=== PATIENT | male | born 1925 | race Caucasian/White ===

== ENCOUNTER 2016-10-20 14:38 | Inpatient (IN) ==
--- NOTE | 2016-10-20 15:55 | Emergency Department Note ---
START Narrative - START START: I examined this patient and my medical decision-making was reviewed with the Resident Physician. I agree with the documented findings, disposition and treatment plan as described except to the extent set forth below. 89-year-old male who presented to the ER for weakness. Patient attempted to go to [facility] but was too weak and was brought to the ER. Patient states his legs were not working very well. At this time, patient has no focal deficits other than he has a slight upper extremity tremor. He is able to lift both legs off the bed. He has no facial droop. He is speaking and answering questions correctly. No focal deficits. We will workup for possible TIA versus infection.
[2016-10-20 16:36] LABS: Basophils % 0.2 %; Eosinophils # 0.1 K/mcL (0.0-0.6); Eosinophils % 0.7 %; Hematocrit 35.1 % (37.5-50.1); Hemoglobin 11.1 g/dL (12.9-16.9); Immature Granulocytes % 0.5 % (0-4); Lymphocytes # 0.6 K/mcL (0.6-4.6); Lymphocytes % 6.7 %; Mean Corpuscular HGB Conc 31.6 g/dL (31.6-35.5); Mean Corpuscular Hemoglobin 28.3 pg (28.0-33.3); Mean Corpuscular Volume 89.5 fL (83.0-100.0); Mean Platelet Volume 9.4 fL (9.4-12.4); Monocytes # 0.7 K/mcL (0.0-1.3); Monocytes % 8.1 %; Neutrophils # 7.4 K/mcL (1.6-8.9); Platelet Count 162 K/mcL (140-400); Red Blood Count 3.92 M/mcL (4.19-5.50); Red Cell Distribution Width 14.9 % (11.5-14.5); Segmented Neutrophils % 83.8 %
[2016-10-20 16:50] LABS: BUN/Creatinine Ratio 16 (6-26); Blood Urea Nitrogen 15 mg/dL (8-26); Calcium 8.8 mg/dL (8.6-10.8); Carbon Dioxide 25 mEq/L (19-29); Chloride 105 mEq/L (98-109); Glucose 80 mg/dL (70-99); Osmolality,Calculated 288 (280-300); Potassium 4.3 mEq/L (3.5-4.5); Sodium 139 mEq/L (136-145); eGFR For African Americans > 60 (> 60); eGFR For Non-African Americans > 60 (> 60)
[2016-10-20 16:50] LABS: Bilirubin,Urine Negative (Negative); Blood,Urine Trace (Negative); Clarity,Urine Cloudy (Clear); Color,Urine Yellow (Yellow); Glucose,Urine (UA) Normal (Normal); Ketones,Urine Negative (Negative); Leukocyte Esterase,Urine Moderate (Negative); Nitrite,Urine Positive (Negative); Protein,Urine 30 mg/dL (Neg-Trace); Specific Gravity,Urine 1.023 (1.010-1.025); Urobilinogen,Urine Normal (Normal)
[2016-10-20 16:52] LABS: Bacteria,Urine Many per hpf (None-Few); Hyaline Casts,Urine None Seen per lpf (None-Few); RBC,Urine 0-3 per hpf (0-3); Squamous Epithelial Cell,Urine Few per lpf (None-Few); WBC,Urine 30-50 per hpf (0-3)
[2016-10-20] MEDS ORDERED: Acetaminophen 650 MG RECTAL SUPP RC ONE (16:52)
--- NOTE | 2016-10-20 17:43 | Emergency Department Note ---
Disposition Clinical Impression: Delirium due to another medical condition, acute, hypoactive, UTI (urinary tract infection) Disposition: Admitted As Inpatient Weakness HPI - General Chief complaint: ED Weakness Stated complaint: My leg not working, shaking Time Seen by Provider: 10/20/16 15:12 Source: patient Limitations: no limitations Vital Signs Reviewed: Yes (fever ) - History of Present Illness HPI Narrative: Patient is a 89-year-old male with a past medical history of CAD and is anticoagulated and history of frequent falls presented to the ED with bilateral leg weakness. Patient was at a restaurant and fell on the ground and he was unable to get. Patient was brought in via his son. claims that he ate is typically talks a lot is not responding as fast. He is also having attention issues and decreased ability to focus. Patient always has dizziness. But denies having previous fever, dysuria, hematuria. Pain Scale: 0 - Related Data Home Medications Medication Instructions Recorded Confirmed Clopidogrel [Plavix] 75 mg PO DAILY 06/10/15 10/20/16 Omeprazole [PriLOSEC] 40 mg PO DAILY 10/20/16 10/20/16 Warfarin [Coumadin] 5 mg PO DAILY 10/20/16 10/20/16 Previous Rx's Medication Instructions Recorded Simvastatin [Zocor] 20 mg PO HS #30 tablet 12/25/15 Allergies Allergy/AdvReac Type Severity Reaction Status Date / Time No Known Allergies Allergy Verified 07/27/15 20:48 All systems ED: reviewed and negative except as stated. Review of Systems: As Per HPI Constitutional: Reports: weakness. Denies: fever, chills Cardiovascular: Denies: chest pain Respiratory: Denies: cough, dyspnea Gastrointestinal: Denies: abdominal pain Genitourinary: Denies: dysuria, hematuria Past Medical History - Past Medical History Medical history: Reports: coronary artery disease, hypertension, myocardial infarction, other Surgical history: Reports: other Psychiatric history: Reports: no psych history - Social History Smoking Status: Never smoker Smokeless Tobacco Status: No Alcohol use: Reports: none Drug use: Reports: none Physical Exam Constitutional: Inattentive, unable to focus on questions asked, well nourished , Head: Normocephalic, normal contour and symmetric, no masses, lesions or scars EENT: EOMI, PERRL, mouth mucous membranes mild dryness but no cracking of lips Heart: Normal, regular rate and rhythm, +murmurs Lungs: bilateral basilar crackles, no wheezes, rales, or rhonchi Abdomen: Soft, nondistended, nontender, and no masses palpable, bowel sounds present and normal, no guarding or rigidity. Extremities: No clubbing, cyanosis, or edema, Skin: Skin warm and dry, no jaundice Neurologic: Cranial nerves II through XII grossly intact, no focal deficits, strength within normal limits in all extremities, will follow basic commands if redirected multiple times which is abnormal per family, dysphasia, Psych: Cooperative with exam, poor eye contact, cognitive function intact, insight poor, speech clear but dysphasia, answers questions appropriately when response finally occurs - General Limitations: no limitations General appearance: alert Course Course Narrative: Patient is a 89-year-old male full code with a past medical history of CAD and is anticoagulated and history of frequent falls presented to the ED with bilateral leg weakness and have a UTI and acute delirium. Patient is found to have a fever 100.8F. CBC, BMP, troponins, and lactic acid, blood cultures, urine analysis, of the head, and chest x-ray were all obtained. Lactic acid was elevated. CBC did not show white count but UA showed UTI. CT did not show bleed. Chest x-ray showed no acute process. Patient was given [address] Ibarra, the hospitalist was contacted and patient was admitted for acute delirium and UTI. Vital Signs Temperature 98.6 F 10/20/16 14:40 Pulse Rate 89 10/20/16 14:40 Respiratory Rate 20 10/20/16 14:40 Blood Pressure 167/66 10/20/16 14:40 O2 Sat by Pulse Oximetry 100 10/20/16 14:40 Temperature 99.4 F 10/20/16 18:43 Pulse Rate 80 10/20/16 18:43 Respiratory Rate 22 10/20/16 18:43 Blood Pressure 142/89 10/20/16 18:43 O2 Sat by Pulse Oximetry 96 10/20/16 18:43 Oxygen Delivery Oxygen Delivery Room Air Weakness - Lab Data Lab results reviewed: Yes I reviewed the patient's lab results. Lab results narrative: All Lab Results (24 Hours) 10/20/16 10/20/16 10/20/16 Range/Units 16:29 16:29 16:29 WBC 8.8 (4.3-11.1) K/mcL RBC 3.92 L (4.19-5.50) M/mcL Hgb 11.1 L (12.9-16.9) g/dL Hct 35.1 L (37.5-50.1) % MCV 89.5 (83.0-100.0) fL MCH 28.3 (28.0-33.3) pg MCHC 31.6 (31.6-35.5) g/dL RDW 14.9 H (11.5-14.5) % Plt Count 162 (140-400) K/mcL MPV 9.4 (9.4-12.4) fL Immature Gran % 0.5 (0-4) % Seg Neutrophils % 83.8 % Lymphocytes % 6.7 % Monocytes % 8.1 % Eosinophils % 0.7 % Basophils % 0.2 % Neutrophils # 7.4 (1.6-8.9) K/mcL Lymphocytes # 0.6 (0.6-4.6) K/mcL Monocytes # 0.7 (0.0-1.3) K/mcL Eosinophils # 0.1 (0.0-0.6) K/mcL Basophils # 0.0 (0.0-0.2) K/mcL Sodium 139 (136-145) mEq/L Potassium 4.3 (3.5-4.5) mEq/L Chloride 105 (98-109) mEq/L Carbon Dioxide 25 (19-29) mEq/L BUN 15 (8-26) mg/dL Creatinine 0.95 (0.72-1.25) mg/dL Est GFR ( Amer) > 60 (> 60) Est GFR (Non-Af Amer) > 60 (> 60) BUN/Creatinine Ratio 16 (6-26) Glucose 80 (70-99) mg/dL Calculated Osmolality 288 (280-300) Lactic Acid 1.3 (0.5-2.2) mmol/L Calcium 8.8 (8.6-10.8) mg/dL Troponin I (0-0.03) ng/mL Urine Color (Yellow) Urine Clarity (Clear) Urine pH (5.0-8.0) pH Units Ur Specific [place] (1.010-1.025) Urine Protein (Neg-Trace) mg/dL Urine Glucose (UA) (Normal) mg/dL Urine Ketones (Negative) mg/dL Urine Blood (Negative) Urine Nitrite (Negative) Urine Bilirubin (Negative) Urine Urobilinogen (Normal) mg/dL Ur Leukocyte Esterase (Negative) Urine Microscopic RBC (0-3) per hpf Urine Microscopic WBC (0-3) per hpf Ur Squamous Epith Cells (None-Few) per lpf Urine Bacteria (None-Few) per hpf Hyaline Casts (None-Few) per lpf Ur Culture Indicated? (NO) 10/20/16 10/20/16 Range/Units 16:29 16:43 WBC (4.3-11.1) K/mcL RBC (4.19-5.50) M/mcL Hgb (12.9-16.9) g/dL Hct (37.5-50.1) % MCV (83.0-100.0) fL MCH (28.0-33.3) pg MCHC (31.6-35.5) g/dL RDW (11.5-14.5) % Plt Count (140-400) K/mcL MPV (9.4-12.4) fL Immature Gran % (0-4) % Seg Neutrophils % % Lymphocytes % % Monocytes % % Eosinophils % % Basophils % % Neutrophils # (1.6-8.9) K/mcL Lymphocytes # (0.6-4.6) K/mcL Monocytes # (0.0-1.3) K/mcL Eosinophils # (0.0-0.6) K/mcL Basophils # (0.0-0.2) K/mcL Sodium (136-145) mEq/L Potassium (3.5-4.5) mEq/L Chloride (98-109) mEq/L Carbon Dioxide (19-29) mEq/L BUN (8-26) mg/dL Creatinine (0.72-1.25) mg/dL Est GFR ( Amer) (> 60) Est GFR (Non-Af Amer) (> 60) BUN/Creatinine Ratio (6-26) Glucose (70-99) mg/dL Calculated Osmolality (280-300) Lactic Acid (0.5-2.2) mmol/L Calcium (8.6-10.8) mg/dL Troponin I 0.00 (0-0.03) ng/mL Urine Color Yellow (Yellow) Urine Clarity Cloudy A (Clear) Urine pH 6.0 (5.0-8.0) pH Units Ur Specific [place] 1.023 (1.010-1.025) Urine Protein 30 H (Neg-Trace) mg/dL Urine Glucose (UA) Normal (Normal) mg/dL Urine Ketones Negative (Negative) mg/dL Urine Blood Trace H (Negative) Urine Nitrite Positive A (Negative) Urine Bilirubin Negative (Negative) Urine Urobilinogen Normal (Normal) mg/dL Ur Leukocyte Esterase Moderate H (Negative) Urine Microscopic RBC 0-3 (0-3) per hpf Urine Microscopic WBC 30-50 H (0-3) per hpf Ur Squamous Epith Cells Few (None-Few) per lpf Urine Bacteria Many H (None-Few) per hpf Hyaline Casts None Seen (None-Few) per lpf Ur Culture Indicated? YES A (NO) Chest X-Ray 10/20/16 15:56 IMPRESSION: No acute abnormality. Chronic pulmonary vascular redistribution. D/ / Milo Vaughn MD / Milo Vaughn MD Interpreting Provider: Milo Vaughn MD Head CT 10/20/16 15:56 IMPRESSION: No evidence of intracranial hemorrhage or mass effect. There is a questionable subtle the area of low-attenuation within the inferior juliana. This is poorly evaluated due to streak artifact at this level and may be artifactual. If there is concern for acute pontine injury, MRI may be helpful for further evaluation. Atrophy and chronic white matter changes, similar in appearance. D/ / Vicky Benítez MD / Vicky Benítez MD Interpreting Provider: Vicky Benítez MD Result diagrams: 10/20/16 16:29 10/20/16 16:29 - Radiology Data Chest X-Ray 10/20/16 15:56 IMPRESSION: No acute abnormality. Chronic pulmonary vascular redistribution. D/ / Milo Vaughn MD / Milo Vaughn MD Interpreting Provider: Milo Vaughn MD Head CT 10/20/16 15:56 IMPRESSION: No evidence of intracranial hemorrhage or mass effect. There is a questionable subtle the area of low-attenuation within the inferior juliana. This is poorly evaluated due to streak artifact at this level and may be artifactual. If there is concern for acute pontine injury, MRI may be helpful for further evaluation. Atrophy and chronic white matter changes, similar in appearance. D/ / Vicky Benítez MD / Vicky Benítez MD Interpreting Provider: Vicky Benítez MD - EKG Data EKG attestation: Yes I reviewed and interpreted this EKG. EKG shows normal: sinus rhythm Rhythm: NSR Surveyor/QRS: normal Interpretation: normal EKG Critical Care Time Critical Care Time: Yes Total Critical Care Time: 35 Attestation: Critical care time spent and medical management of altered mental status with urinary tract infection and acute febrile illness.
[2016-10-20] MEDS ORDERED: D5% in Water 100 ML ONE (17:58)
[2016-10-20] MEDS ORDERED: Ibuprofen 400 MG TABLET PO PRN (20:36)
[2016-10-20] MEDS ORDERED: Acetaminophen 325 MG TABLET PO PRN (20:36)
[2016-10-20] MEDS ORDERED: Ondansetron 4 MG/2 ML VIAL IVP PRN (20:36)
[2016-10-20] MEDS ORDERED: Naloxone 0.4 MG/ML INJ IVP PRN (20:36)
--- NOTE | 2016-10-20 20:56 | Internal Med History&Physical ---
<Kyler Larson - Last Filed: 10/20/16 21:53> Date of Encounter: 10/20/16 Time of Encounter: 20:00 Assessment and Plan (1) Complicated UTI (urinary tract infection) Current visit: Yes Status: Acute Patient presents with acute complicated UTI with symptoms of acute metabolic encephalopathy and transient AMS. IV ceftriaxone 1,000 mg administered in the ED and we will continue tonight with 1,000 mg follow-up IV dosing. Will begin IV 2,000 mg dosing of ceftriaxone tomorrow for continued infection coverage. Blood cultures x2 ordered as well as urine culture. Fever control to be accomplished by alternating PO Motrin 400 mg Q6 and PO Acetaminophen 650 mg Q6. Patient to receive IV fluids at 100 mL/HR. Will monitor patient for fever and cardiac/respiratory changes. Falls/safety precautions ordered due to patient's current instability with ambulation. (2) Acute metabolic encephalopathy Current visit: Yes Status: Acute Patient presents with acute metabolic encephalopathy related to his current diagnosis of complicated UTI. IV ceftriaxone administered in the ED and we will continue 1,000 mg of IV ceftriaxone tonight and begin 2,000 mg treatment tomorrow for infection coverage. CT of the brain without contrast today shows no evidence of intracranial hemorrhage or mass effect. However, there is a questionable subtle area of low attenuation within the inferior juliana. This is poorly evaluated due to streak artifact at this level may be artifactual. If there is concern for acute pontine injury, MRI may be helpful for further evaluation. Atrophy and chronic white matter changes are similar in appearance. MRI of the brain without contrast ordered for tomorrow (10/21/16) based on patient's mentation following second dosing of IV antibiotics tonight. If mentation improves, will reconsider MRI tomorrow. Falls/safety precautions ordered. (3) Dizziness Current visit: Yes Status: Acute Patient presents with acute dizziness and AMS related to current complicated UTI and acute metabolic encephalopathy. Patient placed as falls precautions/up with assist/bed rest with bathroom privileges with assist only due to instability/dizziness. (4) Frequent falls Current visit: Yes Status: Chronic Patient presents with history of frequent falls and near syncopal episodes. Orthostatic BPs and vital signs ordered. Blood glucose monitoring ordered every 6 to assess for hypoglycemia/hyperglycemia. Patient to be placed as falls precautions/up with assist/bedrest with bathroom privileges with assist only due to history of falls and near syncopal episodes. (5) CAD (coronary artery disease) Current visit: Yes Status: Chronic Patient presents with history of chronic coronary artery disease and is currently on anticoagulation therapy with Coumadin. Will continue patient's Coumadin with pharmacy dosing. Patient placed on continuous cardiac telemetry. Patient's EKG today at 14:55 was suggestive of ischemia with sinus rhythm and anteroseptal myocardial infarction, probably recent. Will repeat EKG. Continue patient's Plavix. Qualifiers: Coronary Disease-Associated Artery/Lesion type: [place] artery [place] vs. transplanted heart: [place] heart Associated angina: without angina Qualified Code(s): I25.10 - Atherosclerotic heart disease of [place] coronary artery without angina pectoris (6) Hypertension Current visit: Yes Status: Chronic Patient presents with history o chronic HTN. Patient does not currently take anti-hypertensive medication. Will monitor patient and vital signs and consider adding Lopressor if patient becomes hypertensive. Qualifiers: Hypertension type: essential hypertension Qualified Code(s): I10 - Essential (primary) hypertension (7) HLD (hyperlipidemia) Current visit: Yes Status: Chronic Patient presents to clinic hyperlipidemia. Lipid panel ordered in a.m. labs. Will continue patient's Zocor. Qualifiers: Hyperlipidemia type: pure hypercholesterolemia Qualified Code(s): E78.00 - Pure hypercholesterolemia, unspecified; E78.0 - Pure hypercholesterolemia (8) Chronic anemia Current visit: Yes Status: Chronic Patient presents with history of chronic anemia and had Hgb of 11.1 and Hct of 35.1 on admission today. These numbers are not far removed from patient's recent baseline. H/H ordered with a.m. labs for monitoring. Will continue to monitor patient for signs of unusual bleeding and order type and screen if appropriate/necessary. (9) DVT prophylaxis Current visit: Yes Status: Acute Patient to be placed on DVT prophylaxis due to current admission protocol and bed rest status. Will continue patient's Warfarin with pharmacy to dose. INR/ APTT levels ordered with a.m. labs. Internal Medicine - H&P: HPI Chief complaint: Weakness/Fall/Pre-syncope Admitted From: Emergency Dept Plans for Post Hospital Care: Home History of present illness: Mr. Linares is a 89 year old male who presents from the ED with chief complaint of dizziness and altered mental status today. Patient reports having bilateral leg weakness today while at a restaurant and falling. He denies hitting his head or blacking out. Patient states he has a history of falls and instability on his feet but that he never passes out. He denies nausea, vomiting, headache, vision changes, abdominal pain, cough, shortness of breath, or syncope. He does report fever and chills. Patient's medical history includes coronary artery disease, hypertension, hyperlipidemia, and previous myocardial infarction from many years ago (with placement of two stents). On admission to the ED, patient' s urine was indicative for urine culture and blood cultures x 2 were ordered. Based on mentation changes, patient was thought to have a complicated UTI and was started on IV ceftriaxone 1,000 mg in the ED. We will continue 1,000 mg of IV ceftriaxone tonight and begin 2,000 mg dosing tomorrow for infection coverage. Patient to be placed on continuous telemetry based on current symptoms with troponins trended x2. Blood glucose checks Q6 to rule out hypoglycemia/hyperglycemia episodes. Orthostatic BPs and vital signs ordered. CT of the head today without contrast shows no evidence of intracranial hemorrhage or mass effect. However there is questionable subtle area of low attenuation within the inferior juliana. This is poorly evaluated due to streak artifact at this level may be artifactual. If there is concern for acute pontine injury, MRI may be helpful for further evaluation. Atrophy and chronic white matter changes are similar in appearance. MRI of the brain without contrast ordered for tomorrow (10/21/16) based on patient's mentation following second dosing of IV antibiotics tonight. If mentation improves, will reconsider MRI tomorrow. Falls/safety precautions ordered. Will continue patient's Plavix and Coumadin with pharmacy dosing. Patient is at moderate risk for further morbidity based on current symptoms and infection and will be placed as inpatient status with close monitoring. Time spent with patient > 40 minutes. Past Med Surg Social Fam HX - Past Medical History Source: patient Medical history: coronary artery disease, hypertension, myocardial infarction, other Psychiatric history: no psych history - Past Surgical History Surgical History: appendectomy, orthopedic, other (Bilateral knee replacement x2 ), other (Tonsillectomy) - Social History Smoking Status: Former smoker Packs per day: 1.5 PPD - Reports he quit 4 years ago Smokeless Tobacco Status: No Alcohol use: none, occasionally Drug use: none Occupational status: previously employed Current living situation: Home, With Family Activity Level: Independent ambulation Recent Out of Country Travel Within the Last 8 Weeks: No Exposure or Possible Exposure to Illness During Travel: No - Family History Mother Adopted: No Race: Family Member Ethnicity: Non- Living Status: Age at : 80 Cause of : Old age Hx Family Medical Disorders: No Father Race: Family Member Ethnicity: Non- Living Status: Age at : 89 Cause of : Old age Hx Family Medical Disorders: No Brother Race: Family Member Ethnicity: Non- Living Status: Age at : 65 Cause of : Cancer Hx Family Cancer: Yes Internal Medicine - H&P: Meds Clopidogrel [Plavix] 75 mg PO DAILY 06/10/15 [History] Simvastatin [Zocor] 20 mg PO HS #30 tablet 12/25/15 [Rx] Omeprazole [PriLOSEC] 40 mg PO DAILY 10/20/16 [History] Warfarin [Coumadin] 5 mg PO DAILY 10/20/16 [History] Allergies No Known Allergies Allergy (Verified 07/27/15 20:48) All Systems PM: A 10-system review of systems was performed and is negative for pertinent findings except as documented above in the HPI. - Constitutional Constitutional: as per HPI, chills, fever(s), falls, weakness, no night sweats - EENT Eyes: no change in vision, no discharge, no pain, no photophobia Ears: no ear discharge, no ear pain, no tinnitus Nose, mouth and throat: no dysphagia, no nasal discharge, no neck pain, no sore throat - Breasts Breasts: as per HPI - Cardiovascular Cardiovascular ROS IM: as per HPI, edema (Bilateral non-pitting pedal edema), lightheadedness, no chest pain, no diaphoresis, no dyspnea, no palpitations, no syncope - Respiratory Respiratory: no cough, no dyspnea, no wheezing, no excessive phlegm production - Gastrointestinal Gastrointestinal: no abdominal pain, no diarrhea, no hematemesis, no hematochezia, no melena, no nausea, no vomiting - Genitourinary Genitourinary ROS male: as per HPI, urinary incontinence - Musculoskeletal Musculoskeletal ROS IM: no numbness, no tingling - Integumentary Integumentary IM: no rash, no unusual bruising - Neurological Neurological ROS: as per HPI, confusion (Mild AMS within past 24 ), frequent falls, lack of coordination, no convulsions, no focal weakness, no numbness, no tingling, no tremor(s) - Psychiatric Psychiatric: as per HPI - Endocrine Endocrine IM: as per HPI - Hematologic/Lymphatic Hematologic/Lymphatic: no easy bruising - Allergic/Immunologic Allergic/Immunologic: as per HPI - Constitutional Vitals: Temp Pulse Resp BP Pulse Ox 99.4 F 80 18 142/89 96 10/20/16 19:32 10/20/16 18:43 10/20/16 19:32 10/20/16 19:32 10/20/16 18:43 General appearance: Present: cooperative, A&O X 3, pleasant, no acute distress, obese, answers questions appropriately - Head Head exam: Present: atraumatic, normocephalic - Eye Eye exam: Present: PERRL, conjuntiva pink, sclera anicteric Pupils: Present: PERRL - ENT ENT exam: Present: mucous membranes dry, normal exam, normal external ear exam - Neck Neck exam general surgery: Present: supple, trachea midline. Absent: lymphadenopathy - Respiratory Respiratory exam: Present: CTAB. Absent: accessory muscle use, rales, rhonchi, wheezes - Cardiovascular Cardiovascular exam: Present: RRR, +S1, +S2. Absent: diastolic murmur, gallop, rubs, systolic murmur - GI/Abdominal GI/Abdominal exam: Present: normal bowel sounds, soft, no peritoneal signs. Absent: distended, tenderness - Rectal Rectal exam: Present: deferred - Additional comments: exam deferred. - Extremities Exam Extremities exam: Present: pedal edema (Non-pitting bilaterally), warm, radial pulses palpable and symmetrical. Absent: calf tenderness, cyanotic - Back Exam Back exam: Present: normal inspection - Neurological Exam Neurological exam: Present: CN II-XII intact, oriented X3, no focal deficits. Absent: pronater drift, facial droop, speech deficit - Psychiatric Psychiatric exam: Present: normal affect, normal mood - Skin Skin exam: Present: dry, intact Internal Med - H&P Results - Labs CBC & Chem 7: 10/20/16 16:29 10/20/16 16:29 - EKG Data EKG shows normal: sinus rhythm - EKG Data Prior EKG available for review: yes When compared to previous EKG: there is no significant change Interpretation IM: suggestive of ischemia EKG comments: 10/20/16 21:04 EKG dated 12/23/15 shows sinus rhythm with occasional ventricular premature complexes, anteroseptal myocardial infarction of indeterminate age. EKG dated 10/20/16 shows sinus rhythm with anteroseptal myocardial infarction, probably recent. - Diagnostic Studies Chest x-ray Additional comments: Impressions Chest X-Ray 10/20/16 15:56 IMPRESSION: No acute abnormality. Chronic pulmonary vascular redistribution. D/ / Milo Vaughn MD / Milo Vaughn MD Interpreting Provider: Milo Vaughn MD CT scan - chest Additional comments: Impressions Head CT 10/20/16 15:56 IMPRESSION: No evidence of intracranial hemorrhage or mass effect. There is a questionable subtle the area of low-attenuation within the inferior juliana. This is poorly evaluated due to streak artifact at this level and may be artifactual. If there is concern for acute pontine injury, MRI may be helpful for further evaluation. Atrophy and chronic white matter changes, similar in appearance. D/ / Vicky Benítez MD / Vicky Benítez MD Interpreting Provider: Vicky Benítez MD <Dillan Whipple - Last Filed: 10/20/16 22:54> Date of Encounter: 10/20/16 Internal Medicine - H&P: HPI History of present illness: Mr. Linares is a 89 year old male All Systems PM: A 10-system review of systems was performed and is negative for pertinent findings except as documented above in the HPI. - Constitutional Vitals: Temp Pulse Resp BP Pulse Ox 98.2 F 69 16 134/67 94 10/20/16 20:10 10/20/16 20:10 10/20/16 20:10 10/20/16 20:10 10/20/16 20:10 Internal Med - H&P Results - Labs CBC & Chem 7: 10/20/16 16:29 10/20/16 16:29 - Attending Attestation I have personally performed a face to face evaluation on this patient. I have reviewed and agree with the care plan. History and Exam by me shows: 89-year-old gentleman with a cardiac and CVA history on anticoagulation Coumadin and Plavix who presents with acute altered mental status and b/l LE weakness. He is fully functional at baseline and he drove himself to [facility] for coffee. During this time at [facility], he was noted develop mild confusion along with b/l LE weakness. He was admitted for UTI and encephalopathy ROS 14 point review of systems reviewed as best as possible given presentation. Pertinent positive or negative as per HPI or otherwise reviewed as negative General - AAO x 3 but sleepy. He feels warm Psych - Appropriate affect/speech. No agitation Eyes - CHRISTELLE. Eye lids intact. No scleral icterus ENT - Oral mucosa pink, dentition intact. External ear clear/dry/intact. No thyromegaly Lymphatics - No cervical/inguinal lympadenopathy Neuro - No gross peripheral or central neuro deficits with intact CN 2-12 exam Heart - Sinus. RRR. S1 and S2 present. No added HS/murmurs appreciated. No elevated JVD appreciated. No calf swellings/erythema Lung - Adequate air entry b/l, No crackes/wheezes appreciated GI - Soft, non-tender. No hepatosplenomegaly/ascities. BS+ - No CVA/suprapubic tenderness or palpable bladder distension Skin - Intact. No rash/petechiae/ecchymosis. Warm extremities UTI - urine pyuria - rocephin IV - IVF - urine cx pending Acute encephalopathy - could be 2/2 to infectious UTI - CT with: There is a questionable subtle the area of low-attenuation within the inferior juliana. This is poorly evaluated due to streak artifact at this level and may be artifactual. If there is concern for acute pontine injury, MRI may be helpful for further evaluation. - however, my exam at bedside is none-focal. Would treat UTI and if symptoms improve, would d/c MRI Anticoagulation - reported to be for cardiac and CVA hx - trend INR, dose coumadin with care while on antibiotics
[2016-10-20] MEDS ORDERED: *HR* Warfarin 5 MG TABLET PO ONE (21:45)
[2016-10-20] MEDS: Pantoprazole 40 MG VIAL IVP SCH (22:11)
[2016-10-20] MEDS: 0.9 % Sodium Chloride 1,000 ML IVC SCH (22:12)
[2016-10-21 03:36] LABS: Basophils % 0.1 %; Eosinophils # 0.1 K/mcL (0.0-0.6); Eosinophils % 0.9 %; Hematocrit 34.3 % (37.5-50.1); Immature Granulocytes % 0.6 % (0-4); Lymphocytes # 1.1 K/mcL (0.6-4.6); Lymphocytes % 12.2 %; Mean Corpuscular HGB Conc 32.1 g/dL (31.6-35.5); Mean Corpuscular Hemoglobin 28.7 pg (28.0-33.3); Mean Corpuscular Volume 89.6 fL (83.0-100.0); Mean Platelet Volume 9.5 fL (9.4-12.4); Monocytes % 11.9 %; Neutrophils # 6.5 K/mcL (1.6-8.9); Platelet Count 153 K/mcL (140-400); Red Blood Count 3.83 M/mcL (4.19-5.50); Red Cell Distribution Width 15.1 % (11.5-14.5); Segmented Neutrophils % 74.3 %
[2016-10-21 03:42] LABS: INR 1.2; Prothrombin Time 12.8 Seconds (9.4-12.1)
[2016-10-21 03:45] LABS: Activated Partial Thrombo Time 28.1 Seconds (26.0-36.0)
[2016-10-21 03:48] LABS: Hemoglobin A1C 5.4 %
[2016-10-21 03:52] LABS: BUN/Creatinine Ratio 14 (6-26); Blood Urea Nitrogen 13 mg/dL (8-26); Calcium 8.8 mg/dL (8.6-10.8); Carbon Dioxide 27 mEq/L (19-29); Chloride 106 mEq/L (98-109); Cholesterol 141 mg/dL (< 200); Glucose 89 mg/dL (70-99); HDL Cholesterol 28 mg/dL (40-59); LDL Cholesterol,Calculated 97 mg/dL (0-99); Magnesium 1.9 mg/dL (1.6-2.6); Osmolality,Calculated 286 (280-300); Sodium 138 mEq/L (136-145); Triglycerides 82 mg/dL (< 150); eGFR For African Americans > 60 (> 60); eGFR For Non-African Americans > 60 (> 60)
[2016-10-21] MEDS: Pantoprazole 40 MG VIAL IVP SCH (06:34)
[2016-10-21] MEDS: 0.9 % Sodium Chloride 1,000 ML IVC SCH ×2 (06:39→21:31)
--- NOTE | 2016-10-21 10:55 | Internal Med Progress Note ---
<Ryan Morse - Last Filed: 10/21/16 11:47> Date of Encounter: 10/21/16 Time of Encounter: 10:49 - Assessment and plan (1) UTI (urinary tract infection) Current Visit: Yes Status: Acute Assessment and plan: Likely cause of patient's AMS. Patient reports some urinary frequency. Reports marked improvement since yesterday. UA showed nitrites, leuke esterace, WBC and bacteria. Ucx showed Gram negative rods Pt received 1g Ceftriaxone in ED and got second gram after admission. continue 2g daily Bcx pending cont IV Fluids Qualifiers: Urinary tract infection type: acute cystitis Hematuria presence: without hematuria Qualified Code(s): N30.00 - Acute cystitis without hematuria (2) Acute metabolic encephalopathy Current Visit: Yes Status: Acute Assessment and plan: Much improved today. Back to baseline today. likely caused by his UTI/dehydration continue abx continue IV fluids CT head showed "uestionable subtle the area of low-attenuation within the inferior juliana. " MRI Brain showed: "Chronic small vessel ischemic changes. No acute brain parenchymal abnormality." (3) Frequent falls Current Visit: Yes Status: Chronic Assessment and plan: History of frequent falls. Orthostatic BPs checked and were negative continue to monitor BG, they have been normal continue fall precautions PT/OT consult (4) Dizziness Current Visit: Yes Status: Acute Assessment and plan: improved. continue fall precautions (5) Hypertension Current Visit: Yes Status: Chronic Assessment and plan: Hx of HTN, but not currently on medications. consider adding lopressor pt's BP has been in the 150s/60s Qualifiers: Hypertension type: essential hypertension Qualified Code(s): I10 - Essential (primary) hypertension (6) CAD (coronary artery disease) Current Visit: Yes Status: Chronic Assessment and plan: Patient denies Chest Pain continue statin, Coumadin and plavix Qualifiers: Coronary Disease-Associated Artery/Lesion type: [place] artery [place] vs. transplanted heart: [place] heart Associated angina: without angina Qualified Code(s): I25.10 - Atherosclerotic heart disease of [place] coronary artery without angina pectoris (7) HLD (hyperlipidemia) Current Visit: Yes Status: Chronic Assessment and plan: continue statin Lipid pannel showed: Cholesterol 141, LDL 97, VLDL 16, HDL 28, Triglycerides 82 Qualifiers: Hyperlipidemia type: pure hypercholesterolemia Qualified Code(s): E78.00 - Pure hypercholesterolemia, unspecified; E78.0 - Pure hypercholesterolemia (8) Chronic anemia Current Visit: Yes Status: Chronic Assessment and plan: Patient near baseline continue to monitor - Subjective Interval history: Patient reports feeling much better today. He is at his baseline per his . Patient alert and orient to person, place and month, day of the week. He doesn' t know the year, but his says this is baseline. He states he no longer has a fever. He denies dysuria, but reports some frequency of urine currently. He says the last 2-3 days prior to admission he was not eating, drinking, making urine, or passing stool. His reports at that time he did not even know who she was. - Constitutional Vitals: Temp Pulse Resp BP Pulse Ox 98.5 F 62 18 155/67 95 10/21/16 07:24 10/21/16 07:24 10/21/16 07:24 10/21/16 07:24 10/21/16 07:52 General appearance: Present: cooperative, A&O X 3, pleasant, no acute distress, obese, answers questions appropriately - Eye Eye exam: Present: PERRL - ENT ENT exam: Present: mucous membranes moist - Respiratory Respiratory exam: Present: CTAB. Absent: rales, rhonchi, wheezes - Cardiovascular Cardiovascular exam: Present: RRR, +S1, +S2. Absent: gallop, rubs, systolic murmur - GI/Abdominal GI/Abdominal exam: Present: normal bowel sounds, soft. Absent: tenderness - Extremities Exam Extremities exam: Absent: pedal edema - Neurological Exam Neurological exam: Present: alert, oriented X3, no focal deficits. Absent: facial droop, speech deficit - Psychiatric Psychiatric exam: Present: normal affect, normal mood - Skin Skin exam: Present: dry, warm Internal Medicine: Result - Labs CBC & Chem 7: 10/21/16 03:14 10/21/16 03:14 Labs: Short CBC 10/21/16 Range/Units 03:14 WBC 8.8 (4.3-11.1) K/mcL Hgb 11.0 L (12.9-16.9) g/dL Hct 34.3 L (37.5-50.1) % Plt Count 153 (140-400) K/mcL Neutrophils # 6.5 (1.6-8.9) K/mcL BMP 10/21/16 03:14 Sodium 138 Potassium 4.0 Chloride 106 Carbon Dioxide 27 BUN 13 Creatinine 0.94 Glucose 89 Calcium 8.8 Cardiac Enzymes 10/21/16 Range/Units 03:14 Troponin I 0.03 (0-0.03) ng/mL - ABG Interpretation ABG results: PT/INR, D-dimer PT 12.8 Seconds (9.4-12.1) H 10/21/16 03:14 Consult Discharge Plan - Plan Referrals: Segun Damon MD [Primary Care Provider] - <Hubert Bender - Last Filed: 10/21/16 18:12> Date of Encounter: 10/21/16 - Assessment and plan (1) Acute metabolic encephalopathy Current Visit: Yes Status: Acute (2) UTI (urinary tract infection) Current Visit: Yes Status: Acute Qualifiers: Urinary tract infection type: acute cystitis Hematuria presence: without hematuria Qualified Code(s): N30.00 - Acute cystitis without hematuria (3) CAD (coronary artery disease) Current Visit: Yes Status: Chronic Qualifiers: Coronary Disease-Associated Artery/Lesion type: [place] artery [place] vs. transplanted heart: [place] heart Associated angina: without angina Qualified Code(s): I25.10 - Atherosclerotic heart disease of [place] coronary artery without angina pectoris (4) HLD (hyperlipidemia) Current Visit: Yes Status: Chronic Qualifiers: Hyperlipidemia type: pure hypercholesterolemia Qualified Code(s): E78.00 - Pure hypercholesterolemia, unspecified; E78.0 - Pure hypercholesterolemia (5) Hypertension Current Visit: Yes Status: Chronic Qualifiers: Hypertension type: essential hypertension Qualified Code(s): I10 - Essential (primary) hypertension (6) Dizziness Current Visit: Yes Status: Acute - Constitutional Vitals: Temp Pulse Resp BP Pulse Ox 98.1 F 61 18 147/62 97 10/21/16 15:19 10/21/16 15:19 10/21/16 15:19 10/21/16 15:19 10/21/16 15:19 Internal Medicine: Result - Labs CBC & Chem 7: 10/21/16 03:14 10/21/16 03:14 Labs: Short CBC 10/21/16 Range/Units 03:14 WBC 8.8 (4.3-11.1) K/mcL Hgb 11.0 L (12.9-16.9) g/dL Hct 34.3 L (37.5-50.1) % Plt Count 153 (140-400) K/mcL Neutrophils # 6.5 (1.6-8.9) K/mcL BMP 10/21/16 03:14 Sodium 138 Potassium 4.0 Chloride 106 Carbon Dioxide 27 BUN 13 Creatinine 0.94 Glucose 89 Calcium 8.8 Cardiac Enzymes 10/21/16 Range/Units 03:14 Troponin I 0.03 (0-0.03) ng/mL - ABG Interpretation ABG results: PT/INR, D-dimer PT 12.8 Seconds (9.4-12.1) H 10/21/16 03:14 - Attending Attestation I examined this patient and my medical decision-making was reviewed with the Resident Physician on 10/21/16. I agree with the documented findings, disposition and treatment plan as described except to the extent set forth below. Mr. Linares is currently admitted for acute encephalopathy due to UTI. He remains moderate to high risk due to potential for worsening neurologic status. Mr. Linares is somewhat better today but not at baseline. He is still fairly confused and very unsteady on his feet. No fever or chills. SNF recommended. Exam Alert. Comfortable Mucus membranes dry Heart reg Lungs clear Abd soft No edema I/P 1. Acute encephalopathy 2. UTI - cx pending Further diagnoses and plan as above.
--- NOTE | 2016-10-21 14:51 | Electrocardiograph Report ---
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
[2016-10-21] MEDS ORDERED: Warfarin perPT PO PRN (18:00)
[2016-10-21] MEDS ORDERED: *HR* Warfarin 5 MG TABLET PO ONE (18:00)
[2016-10-22] MEDS: 0.9 % Sodium Chloride 1,000 ML IVC SCH ×2 (02:42→13:10)
[2016-10-22] MEDS: Pantoprazole 40 MG VIAL IVP SCH (06:16)
[2016-10-22 07:14] LABS: INR 1.1; Prothrombin Time 12.4 Seconds (9.4-12.1)
[2016-10-22 08:20] LABS: Hematocrit 36.4 % (37.5-50.1); Hemoglobin 11.4 g/dL (12.9-16.9); Mean Corpuscular HGB Conc 31.3 g/dL (31.6-35.5); Mean Corpuscular Hemoglobin 27.9 pg (28.0-33.3); Mean Corpuscular Volume 89.2 fL (83.0-100.0); Mean Platelet Volume 9.8 fL (9.4-12.4); Platelet Count 167 K/mcL (140-400); Red Blood Count 4.08 M/mcL (4.19-5.50); Red Cell Distribution Width 14.7 % (11.5-14.5)
--- NOTE | 2016-10-22 17:56 | Internal Med Progress Note ---
Date of Encounter: 10/22/16 Time of Encounter: 09:30 - Assessment and plan (1) Hypertension Current Visit: Yes Status: Chronic Assessment and plan: Uncontrolled. Heartrate 50-60. Add Norvasc. Qualifiers: Hypertension type: essential hypertension Qualified Code(s): I10 - Essential (primary) hypertension (2) Acute metabolic encephalopathy Current Visit: Yes Status: Acute Assessment and plan: Continues to slowly improve. feels he is approaching baseline. Continue supportive care for now. (3) UTI (urinary tract infection) Current Visit: Yes Status: Acute Assessment and plan: Urine with E. coli sensitive to everything. Will plan PO abx at discharge. Qualifiers: Urinary tract infection type: acute cystitis Hematuria presence: without hematuria Qualified Code(s): N30.00 - Acute cystitis without hematuria (4) CAD (coronary artery disease) Current Visit: Yes Status: Chronic Assessment and plan: Patient denies Chest Pain continue statin, Coumadin and plavix Qualifiers: Coronary Disease-Associated Artery/Lesion type: [place] artery [place] vs. transplanted heart: [place] heart Associated angina: without angina Qualified Code(s): I25.10 - Atherosclerotic heart disease of [place] coronary artery without angina pectoris (5) HLD (hyperlipidemia) Current Visit: Yes Status: Chronic Assessment and plan: continue statin Lipid pannel showed: Cholesterol 141, LDL 97, VLDL 16, HDL 28, Triglycerides 82 Qualifiers: Hyperlipidemia type: pure hypercholesterolemia Qualified Code(s): E78.00 - Pure hypercholesterolemia, unspecified; E78.0 - Pure hypercholesterolemia (6) Dizziness Current Visit: Yes Status: Acute Assessment and plan: improved. continue fall precautions - Subjective Interval history: Mr. Linares is currently is currently admitted for weakness and encephalopathy related to UTI. He remains moderate to high risk due to potential for worsening neuro and infectious issues. Mr Linares is up at bedside. His is here as well. He is eating OK and bowels just moved. He seems to be mentally somewhat clearer now. No fever or chills. Awaiting SNF on Monday. - Constitutional Vitals: Temp Pulse Resp BP Pulse Ox 97.4 F L 58 14 176/63 97 10/22/16 17:35 10/22/16 17:35 10/22/16 17:35 10/22/16 17:35 10/22/16 17:35 General appearance: Present: cooperative, A&O X 3, pleasant, answers questions appropriately - Head Head exam: Present: normocephalic - Eye Eye exam: Present: conjuntiva pink - ENT ENT exam: Present: mucous membranes moist - Respiratory Respiratory exam: Present: CTAB. Absent: rales, rhonchi, wheezes - Cardiovascular Cardiovascular exam: Present: RRR. Absent: tachycardia - GI/Abdominal GI/Abdominal exam: Present: soft. Absent: tenderness - Extremities Exam Extremities exam: Present: warm - Neurological Exam Neurological exam: Present: alert, no focal deficits - Psychiatric Psychiatric exam: Present: normal affect - Skin Skin exam: Present: dry, warm. Absent: rash Internal Medicine: Result - Labs CBC & Chem 7: 10/22/16 06:38 10/21/16 03:14 Labs: Short CBC 10/22/16 Range/Units 06:38 WBC 7.1 (4.3-11.1) K/mcL Hgb 11.4 L (12.9-16.9) g/dL Hct 36.4 L (37.5-50.1) % Plt Count 167 (140-400) K/mcL - ABG Interpretation ABG results: PT/INR, D-dimer PT 12.4 Seconds (9.4-12.1) H 10/22/16 06:38 Consult Discharge Plan - Plan Referrals: Segun Damon MD [Primary Care Provider] -
[2016-10-22] MEDS ORDERED: *HR* Warfarin 7.5 MG TABLET PO ONE (18:00)
[2016-10-22] MEDS: amLODIPine 5 MG TABLET PO SCH (18:20)
[2016-10-23 04:18] LABS: Hematocrit 34.7 % (37.5-50.1); Hemoglobin 11.2 g/dL (12.9-16.9); Mean Corpuscular HGB Conc 32.3 g/dL (31.6-35.5); Mean Corpuscular Hemoglobin 28.4 pg (28.0-33.3); Mean Corpuscular Volume 87.8 fL (83.0-100.0); Mean Platelet Volume 9.9 fL (9.4-12.4); Platelet Count 162 K/mcL (140-400); Red Blood Count 3.95 M/mcL (4.19-5.50); Red Cell Distribution Width 14.6 % (11.5-14.5)
[2016-10-23 04:24] LABS: INR 1.1; Prothrombin Time 11.9 Seconds (9.4-12.1)
[2016-10-23 04:33] LABS: BUN/Creatinine Ratio 16 (6-26); Blood Urea Nitrogen 14 mg/dL (8-26); Carbon Dioxide 25 mEq/L (19-29); Chloride 107 mEq/L (98-109); Glucose 84 mg/dL (70-99); Magnesium 1.9 mg/dL (1.6-2.6); Osmolality,Calculated 288 (280-300); Potassium 4.3 mEq/L (3.5-4.5); Sodium 139 mEq/L (136-145); eGFR For African Americans > 60 (> 60); eGFR For Non-African Americans > 60 (> 60)
[2016-10-23] MEDS: amLODIPine 5 MG TABLET PO SCH (07:26)
--- NOTE | 2016-10-23 12:57 | Internal Med Progress Note ---
Date of Encounter: 10/23/16 Time of Encounter: 10:00 - Assessment and plan (1) Hypertension Current Visit: Yes Status: Chronic Assessment and plan: A little better with addition of Norvasc. Will reassess tomorrow and may need medication increased. Qualifiers: Hypertension type: essential hypertension Qualified Code(s): I10 - Essential (primary) hypertension (2) Acute metabolic encephalopathy Current Visit: Yes Status: Acute Assessment and plan: Continues to slowly improve. Most likely is about baseline. Son does not feel he should be driving. (3) UTI (urinary tract infection) Current Visit: Yes Status: Acute Assessment and plan: Urine with E. coli sensitive to everything. Will plan PO abx at discharge. Qualifiers: Urinary tract infection type: acute cystitis Hematuria presence: without hematuria Qualified Code(s): N30.00 - Acute cystitis without hematuria (4) CAD (coronary artery disease) Current Visit: Yes Status: Chronic Assessment and plan: Patient denies Chest Pain continue statin, Coumadin and plavix Qualifiers: Coronary Disease-Associated Artery/Lesion type: [place] artery [place] vs. transplanted heart: [place] heart Associated angina: without angina Qualified Code(s): I25.10 - Atherosclerotic heart disease of [place] coronary artery without angina pectoris (5) HLD (hyperlipidemia) Current Visit: Yes Status: Chronic Assessment and plan: continue statin Lipid pannel showed: Cholesterol 141, LDL 97, VLDL 16, HDL 28, Triglycerides 82 Qualifiers: Hyperlipidemia type: pure hypercholesterolemia Qualified Code(s): E78.00 - Pure hypercholesterolemia, unspecified; E78.0 - Pure hypercholesterolemia (6) Dizziness Current Visit: Yes Status: Acute Assessment and plan: improved. continue fall precautions - Subjective Interval history: Mr. Linares is currently is currently admitted for weakness and encephalopathy related to UTI. He remains moderate to high risk due to potential for worsening neuro and infectious issues. Mr Linares is resting in bed. He denies complaints at this time. No fever or chills. Did not sleep well last night. and son at bedside. Son concerned because a physician signed a statement allowing patient to drive and he does not feel patient should be driving. Working on d/c to SNF hopefully tomorrow. - Constitutional Vitals: Temp Pulse Resp BP Pulse Ox 97.4 F L 58 17 143/58 94 10/23/16 12:05 10/23/16 12:05 10/23/16 12:05 10/23/16 12:05 10/23/16 12:05 General appearance: Present: cooperative, A&O X 3, pleasant, answers questions appropriately - Head Head exam: Present: normocephalic - Eye Eye exam: Present: conjuntiva pink - ENT ENT exam: Present: mucous membranes moist - Respiratory Respiratory exam: Present: CTAB. Absent: rales, rhonchi, wheezes - Cardiovascular Cardiovascular exam: Present: RRR. Absent: tachycardia - GI/Abdominal GI/Abdominal exam: Present: soft. Absent: tenderness - Extremities Exam Extremities exam: Present: warm. Absent: tenderness - Neurological Exam Neurological exam: Present: alert, no focal deficits - Skin Skin exam: Present: warm. Absent: rash Internal Medicine: Result - Labs CBC & Chem 7: 10/23/16 03:44 10/23/16 03:44 Labs: Short CBC 10/23/16 Range/Units 03:44 WBC 6.1 (4.3-11.1) K/mcL Hgb 11.2 L (12.9-16.9) g/dL Hct 34.7 L (37.5-50.1) % Plt Count 162 (140-400) K/mcL BMP 10/23/16 03:44 Sodium 139 Potassium 4.3 Chloride 107 Carbon Dioxide 25 BUN 14 Creatinine 0.85 Glucose 84 Calcium 9.0 - ABG Interpretation ABG results: PT/INR, D-dimer PT 11.9 Seconds (9.4-12.1) 10/23/16 03:44 Consult Discharge Plan - Plan Referrals: Segun Damon MD [Primary Care Provider] -
[2016-10-23] MEDS ORDERED: *HR* Warfarin 7.5 MG TABLET PO ONE (18:00)
[2016-10-23] MEDS ORDERED: Warfarin perPT PO PRN (18:00)
[2016-10-24 04:51] LABS: INR 1.2; Prothrombin Time 13.1 Seconds (9.4-12.1)
--- NOTE | 2016-10-24 09:30 | Physician Discharge Referral ---
ExtendedCare Referral Info Provider in Charge after Transfer: PCP Institutional Level of Care: Skilled - Diagnosis (1) UTI (urinary tract infection) Priority: Primary Status: Resolved (2) Acute metabolic encephalopathy Priority: Secondary Status: Resolved (3) Frequent falls Priority: Secondary Status: Chronic (4) Dizziness Priority: Secondary Status: Acute (5) Hypertension Priority: Secondary Status: Chronic (6) CAD (coronary artery disease) Priority: Secondary Status: Chronic (7) HLD (hyperlipidemia) Priority: Secondary Status: Chronic (8) Chronic anemia Priority: Secondary Status: Chronic Prognosis: Fair Aware of Diagnosis: Patient, Family Aware of Prognosis: Patient, Family - Transfer Medications Prescriptions: amLODIPine [Norvasc] 5 mg PO DAILY #30 tab Home Medications: Clopidogrel [Plavix] 75 mg PO DAILY 06/10/15 [History] Simvastatin [Zocor] 20 mg PO HS #30 tablet 12/25/15 [Rx] Omeprazole [PriLOSEC] 40 mg PO DAILY 10/20/16 [History] Warfarin [Coumadin] 5 mg PO DAILY 10/20/16 [History] amLODIPine [Norvasc] 5 mg PO DAILY #30 tab 10/24/16 [Rx] Allergies/Adverse Reactions: Allergies No Known Allergies Allergy (Verified 07/27/15 20:48) - Respiratory Orders None Smoking Cessation: Smoking cessation has been advised. For more information, call the [facility] Tobacco Quit Line at 0-874-[facility]-NOW. - Ancillary Orders May use pressure relief devices daily prn - Advance Directives Code Status: Full Code - Mobility Orders Ambulate - Rehabiliation Orders Rehab Potential: Fair Rehab Orders: ROM Exercises, Evaluation for Physical Therapy, Evaluation for Occupational Therapy - Treatments Skin tear care topically daily PRN per policy - Diet Orders Cardiac CERTIFICATION: I certify that the transfer of the above named patient to an Extended Care Facility is necessary for the continuing treatment of the diagnosis listed. The above information is true and accurate reflection of patient's current condition. Confidential - Redisclosure prohibited without a patient's written consent.
--- NOTE | 2016-10-24 09:30 | Discharge Summary ---
<TerilornaRyan - Last Filed: 10/24/16 13:04> Date of Encounter: 10/24/16 Time of Encounter: 08:40 - Discharge Diagnosis (1) UTI (urinary tract infection) Priority: Secondary Status: Resolved Qualifiers: Urinary tract infection type: acute cystitis Hematuria presence: without hematuria Qualified Code(s): N30.00 - Acute cystitis without hematuria (2) Acute metabolic encephalopathy Priority: Primary Status: Resolved (3) Frequent falls Priority: Secondary Status: Chronic (4) Dizziness Priority: Secondary Status: Acute (5) Hypertension Priority: Secondary Status: Chronic Qualifiers: Hypertension type: essential hypertension Qualified Code(s): I10 - Essential (primary) hypertension (6) CAD (coronary artery disease) Priority: Secondary Status: Chronic Qualifiers: Coronary Disease-Associated Artery/Lesion type: [place] artery [place] vs. transplanted heart: [place] heart Associated angina: without angina Qualified Code(s): I25.10 - Atherosclerotic heart disease of [place] coronary artery without angina pectoris (7) HLD (hyperlipidemia) Priority: Secondary Status: Chronic Qualifiers: Hyperlipidemia type: pure hypercholesterolemia Qualified Code(s): E78.00 - Pure hypercholesterolemia, unspecified; E78.0 - Pure hypercholesterolemia (8) Chronic anemia Priority: Secondary Status: Chronic - Discharge Medications Prescriptions: amLODIPine [Norvasc] 5 mg PO DAILY #30 tab Home Medications: Clopidogrel [Plavix] 75 mg PO DAILY 06/10/15 [History] Simvastatin [Zocor] 20 mg PO HS #30 tablet 12/25/15 [Rx] Omeprazole [PriLOSEC] 40 mg PO DAILY 10/20/16 [History] Warfarin [Coumadin] 5 mg PO DAILY 10/20/16 [History] amLODIPine [Norvasc] 5 mg PO DAILY #30 tab 10/24/16 [Rx] Allergies/Adverse Reactions: Allergies No Known Allergies Allergy (Verified 07/27/15 20:48) Procedures/tests Complete & Pending: CXR: "FINDINGS: Chronic pulmonary vascular redistribution. Trachea is essentially midline. No lung infiltrate or consolidation. No pneumothorax or pleural effusion. Heart size is normal. XR/XR chest 1V portable IMPRESSION: No acute abnormality. Chronic pulmonary vascular redistribution." CT Head: "FINDINGS: BRAIN/VENTRICLES: There is no acute intracranial hemorrhage, mass effect or midline shift. No abnormal extra-axial fluid collection. There is a questionable area of low-attenuation within the inferior juliana which is poorly evaluated due to streak artifact. Moderate atrophy is again seen. There mild periventricular white matter hypodensities, also similar in appearance. The montes-white differentiation is maintained without evidence of an acute infarct. There is no evidence of hydrocephalus. ORBITS: The visualized portion of the orbits demonstrate no acute abnormality. SINUSES: The visualized paranasal sinuses and mastoid air cells demonstrate no acute abnormality. SOFT TISSUES/SKULL: No acute abnormality of the visualized skull or soft tissues. CT/CT head/brain wo con IMPRESSION: No evidence of intracranial hemorrhage or mass effect. There is a questionable subtle the area of low-attenuation within the inferior juliana. This is poorly evaluated due to streak artifact at this level and may be artifactual. If there is concern for acute pontine injury, MRI may be helpful for further evaluation. Atrophy and chronic white matter changes, similar in appearance." MRI Brain: "FINDINGS: INTRACRANIAL STRUCTURES/VENTRICLES: Motion artifact degrades the images. There is no acute infarct. The ventricles and cisternal spaces are prominent consistent with cerebral atrophy. There are multiple punctate areas of high-signal in the periventricular white matter and centrum semiovale that are likely related to chronic small vessel ischemic disease. There is no midline shift or mass effect. ORBITS: The visualized portion of the orbits demonstrate no acute abnormality. SINUSES: There is a tiny mucous retention cyst or polyp in the left maxillary sinus. There is minimal mucoperiosteal thickening of the ethmoid air cells. The remainder of the sinuses are clear. The mastoid air cells are clear. BONES/SOFT TISSUES: The bone marrow signal intensity appears normal. The craniocervical junction is normal in appearance. MR/MR head/brain wo con IMPRESSION: Motion artifact degrades the images. Cerebral atrophy. Chronic small vessel ischemic changes. No acute brain parenchymal abnormality" Date of admission: 10/20/16 22:30 Primary care physician: Segun Damon MD Discharging clinician: Ryan Morse Anticipated date of discharge: 10/24/16 - Patient Status Disposition: Transfer SNF Condition: Good Functional capacity at discharge: uses cane/walker Overall status at discharge: patient is progressing back to baseline - Discharge Instructions Follow Up With: Segun Damon MD [Primary Care Provider] - Additional Instructions: Please Follow up with your Primary Care Provider within 1 week of being discharged from Physical Therapy Please take all your medications as prescribed including your new medication Norvasc 5mg to be taken daily. Please return to the hospital if you have any new or worsening symptoms. - Diet and Activity Activity: as per physical therapy Diet: other (cardiac diet) Interval History: Patient reports feeling well and being ready to leave the hospital. He is at his baseline and has no medical complaints at this time. Hospital course: Mr. Linares is a 89 year old male c PMHx of CAD, HTN, [place] who reports to the hospital for AMS and urinary symptoms. Patient had several days of increased frequency and poor PO intake. Patient was found to have a UTI on testing. Patient was given 3 days of IV ceftriaxone and symptoms improved dramatically. Patient was back to baseline cognition the next morning after admission. MRI of the brain showed no acute process. Patient has had some elevated blood pressures in the hosptial and was started on 5mg Norvasc to better control his BP. Patient was sent to ECF/SNF for PT needs. - Time Spent with Patient Total time spent providing and/or coordinating discharge services: - Constitutional Vitals: Temp Pulse Resp BP Pulse Ox 97.7 F 66 18 158/69 94 10/24/16 07:26 10/24/16 07:26 10/24/16 07:26 10/24/16 07:26 10/24/16 07:26 General appearance: Present: cooperative, A&O X 3, pleasant, answers questions appropriately - Eye Eye exam: Present: PERRL - ENT ENT exam: Present: mucous membranes moist - Respiratory Respiratory exam: Present: CTAB. Absent: rales, rhonchi, wheezes - Cardiovascular Cardiovascular exam: Present: RRR, +S1, +S2. Absent: gallop, rubs, systolic murmur - GI/Abdominal GI/Abdominal exam: Present: normal bowel sounds, soft. Absent: tenderness - Extremities Exam Extremities exam: Present: warm. Absent: pedal edema, tenderness - Neurological Exam Neurological exam: Present: alert, oriented X3. Absent: no focal deficits, speech deficit - Psychiatric Psychiatric exam: Present: normal affect, normal mood - Skin Skin exam: Present: dry, warm <Hubert Bender - Last Filed: 08/14/17 17:18> Date of Encounter: 10/24/16 - Discharge Diagnosis (1) Acute metabolic encephalopathy Status: Resolved (2) UTI (urinary tract infection) Status: Resolved Qualifiers: Urinary tract infection type: acute cystitis Hematuria presence: without hematuria Qualified Code(s): N30.00 - Acute cystitis without hematuria (3) Hypertension Status: Chronic Qualifiers: Hypertension type: essential hypertension Qualified Code(s): I10 - Essential (primary) hypertension (4) CAD (coronary artery disease) Status: Chronic Qualifiers: Coronary Disease-Associated Artery/Lesion type: [place] artery [place] vs. transplanted heart: [place] heart Associated angina: without angina Qualified Code(s): I25.10 - Atherosclerotic heart disease of [place] coronary artery without angina pectoris (5) HLD (hyperlipidemia) Status: Chronic Qualifiers: Hyperlipidemia type: pure hypercholesterolemia Qualified Code(s): E78.00 - Pure hypercholesterolemia, unspecified; E78.0 - Pure hypercholesterolemia (6) Dizziness Status: Acute Date of admission: 10/20/16 22:30 Primary care physician: Segun Damon MD Hospital course: Mr. Linares is a 89 year old male - Time Spent with Patient Total time spent providing and/or coordinating discharge services: 38min - Constitutional Vitals: Temp Pulse Resp BP Pulse Ox 97.6 F 80 18 120/67 95 10/24/16 15:36 10/24/16 15:36 10/24/16 15:36 10/24/16 15:36 10/24/16 15:36 - Attending Attestation I examined this patient and my medical decision-making was reviewed with the Resident Physician on 10/24/16. I agree with the documented findings, disposition and treatment plan as described except to the extent set forth below. Mr. Linares is currently admitted for acute encephalopathy related to UTI. He is currently moderate risk due to potential for worsening neuro status. He is waiting approval for SNF. Mr. Linares is up in [place] walking. He feels OK today. No fever or chills. No other symptoms. and son at bedside. Exam Alert. Comfortable Mucus membranes moist Heart reg No wheeze Abd soft I/P 1. Acute encephalopathy 2. UTI Further diagnoses and plan as above
[2016-10-24] MEDS: amLODIPine 5 MG TABLET PO SCH (09:40)
[2016-10-24] MEDS ORDERED: *HR* Warfarin 7.5 MG TABLET PO ONE (18:00)
[2016-10-25 08:12] LABS: INR 1.3; Prothrombin Time 14.1 Seconds (9.4-12.1)
--- NOTE | 2016-10-25 08:37 | Internal Med Progress Note ---
<Ryan Morse - Last Filed: 10/25/16 08:35> Date of Encounter: 10/25/16 Time of Encounter: 08:35 - Assessment and plan (1) UTI (urinary tract infection) Current Visit: Yes Status: Resolved Assessment and plan: Urine with E. coli sensitive to everything. Has received 4 days of IV rocephin No further treatment needed. Qualifiers: Urinary tract infection type: acute cystitis Hematuria presence: without hematuria Qualified Code(s): N30.00 - Acute cystitis without hematuria (2) Acute metabolic encephalopathy Current Visit: Yes Status: Resolved Assessment and plan: Is at baseline per . Son does not feel he should be driving. (3) Frequent falls Current Visit: Yes Status: Chronic Assessment and plan: History of frequent falls. Orthostatic BPs checked and were negative continue to monitor BG, they have been normal continue fall precautions PT/OT consulted PT to be d/c to [facility] for conntinued work with PT Awaiting insurance approval (4) Dizziness Current Visit: Yes Status: Acute Assessment and plan: -improved. -continue fall precautions (5) Hypertension Current Visit: Yes Status: Chronic Assessment and plan: Pt had hx of HTN but had not been on medication on admission. had some elevated BPs A little better with addition of Norvasc. Qualifiers: Hypertension type: essential hypertension Qualified Code(s): I10 - Essential (primary) hypertension (6) CAD (coronary artery disease) Current Visit: Yes Status: Chronic Assessment and plan: Chronic stable. Patient denies Chest Pain continue statin, Coumadin and plavix Qualifiers: Coronary Disease-Associated Artery/Lesion type: [place] artery [place] vs. transplanted heart: [place] heart Associated angina: without angina Qualified Code(s): I25.10 - Atherosclerotic heart disease of [place] coronary artery without angina pectoris (7) HLD (hyperlipidemia) Current Visit: Yes Status: Chronic Assessment and plan: -continue statin Lipid pannel showed: Cholesterol 141, LDL 97, VLDL 16, HDL 28, Triglycerides 82 Qualifiers: Hyperlipidemia type: pure hypercholesterolemia Qualified Code(s): E78.00 - Pure hypercholesterolemia, unspecified; E78.0 - Pure hypercholesterolemia (8) Chronic anemia Current Visit: Yes Status: Chronic Assessment and plan: Patient near baseline - Subjective Interval history: Patient is sitting comfortably in a chair. Patient has no complaints at this time. Patient just awaiting insurance approval before being discharged to [facility] for rehab. - Constitutional Vitals: Temp Pulse Resp BP Pulse Ox 97.7 F 81 14 149/61 93 10/25/16 07:11 10/25/16 07:11 10/25/16 07:11 10/25/16 03:27 10/25/16 07:11 General appearance: Present: cooperative, A&O X 3, pleasant, answers questions appropriately - Eye Eye exam: Present: sclera anicteric - ENT ENT exam: Present: mucous membranes moist - Respiratory Respiratory exam: Present: CTAB. Absent: rales, rhonchi, wheezes - Cardiovascular Cardiovascular exam: Present: RRR, +S1, +S2. Absent: diastolic murmur, gallop, rubs - GI/Abdominal GI/Abdominal exam: Present: normal bowel sounds, soft. Absent: tenderness - Extremities Exam Extremities exam: Present: warm. Absent: tenderness - Neurological Exam Neurological exam: Present: alert, oriented X3. Absent: speech deficit - Psychiatric Psychiatric exam: Present: normal affect, normal mood - Skin Skin exam: Present: dry, warm Internal Medicine: Result - Labs CBC & Chem 7: 10/23/16 03:44 10/23/16 03:44 - ABG Interpretation ABG results: PT/INR, D-dimer PT 14.1 Seconds (9.4-12.1) H 10/25/16 07:04 Consult Discharge Plan - Plan Additional Instructions: Please Follow up with your Primary Care Provider within 1 week of being discharged from Physical Therapy Please take all your medications as prescribed including your new medication Norvasc 5mg to be taken daily. Please return to the hospital if you have any new or worsening symptoms. Referrals: Segun Damon MD [Primary Care Provider] - Prescriptions: amLODIPine [Norvasc] 5 mg PO DAILY #30 tab <Juwan Barboza H - Last Filed: 10/25/16 09:38> Date of Encounter: 10/25/16 - Constitutional Vitals: Temp Pulse Resp BP Pulse Ox 97.7 F 81 14 149/61 93 10/25/16 07:11 10/25/16 07:11 10/25/16 07:11 10/25/16 03:27 10/25/16 07:11 Internal Medicine: Result - Labs CBC & Chem 7: 10/23/16 03:44 10/23/16 03:44 - ABG Interpretation ABG results: PT/INR, D-dimer PT 14.1 Seconds (9.4-12.1) H 10/25/16 07:04 - Attending Attestation Acute mental metabolic encephalopathy secondary to UTI/Escherichia coli pansensitive Completed 5 days of ceftriaxone May be able to be discharged later today once the precertification is approved I examined this patient and my medical decision-making was reviewed with the Resident Physician. I agree with the documented findings, disposition and treatment plan as described except to the extent set forth below.
[2016-10-25] MEDS: amLODIPine 5 MG TABLET PO SCH (10:14)
[2016-10-25 15:21] VITALS: BP 138/62
[2016-10-25] MEDS ORDERED: *HR* Warfarin 4 MG TABLET PO ONE ×2 (18:00)
== END 2016-10-25 18:14 | DRG 689 ==
LOC: EMEROO 14:38 → 3NENU 14:38 → SUATTDRO 22:30 → 3ANU 10-22 17:29
PROVIDERS: ADMIT Internal Medicine Endocrinology, Diabetes & Metabolism; ATTEND Internal Medicine

== ENCOUNTER 2017-07-15 09:25 | Observation (INO) ==
[2017-07-15 10:10] LABS: Immature Granulocytes % 0.3 % (0-4)
[2017-07-15 10:11] LABS: Basophils % 0.8 %; Eosinophils % 0.3 %; Hematocrit 34.5 % (37.5-50.1); Hemoglobin 11.4 g/dL (12.9-16.9); Immature Platelets 2.4 % (1.1-6.1); Lymphocytes # 0.7 K/mcL (0.6-4.6); Lymphocytes % 18.1 %; Mean Corpuscular Volume 90.8 fL (83.0-100.0); Mean Platelet Volume 9.7 fL (9.4-12.4); Monocytes % 14.4 %; Neutrophils # 2.5 K/mcL (1.6-8.9); Red Cell Distribution Width 15.1 % (11.5-14.5); Segmented Neutrophils % 66.1 %
[2017-07-15 10:13] LABS: Monocytes # 0.6 K/mcL (0.0-1.3); Platelet Count 99 K/mcL (140-400)
[2017-07-15 10:15] LABS: INR 1.2; Prothrombin Time 13.1 Seconds (9.4-12.1)
--- NOTE | 2017-07-15 10:25 | Emergency Department Note ---
Disposition Clinical Impression: NSTEMI (non-ST elevated myocardial infarction), Colitis, Weakness Disposition: Admitted As Inpatient Condition: Fair Referrals: Segun Damon MD [Primary Care Provider] - Forms: ED Satisfaction Letter Time of Disposition: 11:43 Weakness HPI - General Chief complaint: ED Weakness Stated complaint: weakness, diarrhea Time Seen by Provider: 07/15/17 09:31 Source: patient, EMS Limitations: no limitations Nursing Notes Reviewed: Yes Vital Signs Reviewed: Yes - History of Present Illness HPI Narrative: Patient is an 89-year-old male with a past medical history of CAD, hypertension , MD with a past surgical history of 1 coronary stent placed 3 weeks ago that presents for generalized weakness and diarrhea. Patient was released from an ECF last week and cites that ever since his release sees been feeling weak. He denies any numbness or tingling. Patient says that he fell in his backyard 3 days ago. He denies hitting his head or losing consciousness. Patient's son adds that the patient also fell inside the house yesterday. Denies any lightheadedness, dizziness, or headaches. He admits to diarrhea 3-4 days ago but no incidents since then. Denies any nausea or vomiting. Denies any abdominal pain. Denies any melena or hematochezia. Denies constipation. Denies any dysuria or hematuria. Admits to subjective fever. Denies any cough. He admits to bilateral ankle edema since he had his coronary stents placed in. Pain Scale: 0 - Related Data Home Medications Medication Instructions Recorded Confirmed Clopidogrel [Plavix] 75 mg PO DAILY 06/10/15 07/15/17 Omeprazole [PriLOSEC] 40 mg PO DAILY 10/20/16 07/15/17 Warfarin [Coumadin] 5 mg PO DAILY 10/20/16 07/15/17 Atorvastatin [Lipitor] 40 mg PO HS 07/15/17 07/15/17 Furosemide [Lasix] 20 mg PO DAILY 07/15/17 07/15/17 Nitroglycerin [Nitrostat] 0.4 mg SL Q5MIN PRN 07/15/17 07/15/17 Previous Rx's Medication Instructions Recorded amLODIPine [Norvasc] 5 mg PO DAILY #30 tab 10/24/16 Aspirin 81 mg PO DAILY tab.chew 06/21/17 Isosorbide MONOnitrate (24 HR) 60 mg PO DAILY tab.er.24h 06/21/17 [Imdur] Lisinopril [Zestril] 5 mg PO DAILY tablet 06/21/17 Metoprolol [Lopressor] 25 mg PO BID tablet 06/21/17 Tramadol HCl [Ultram] 50 mg PO BID 2 Days #4 tablet 06/21/17 Allergies Allergy/AdvReac Type Severity Reaction Status Date / Time No Known Allergies Allergy Verified 07/15/17 09:27 Constitutional: Reports: fever, weakness Cardiovascular: Denies: chest pain, palpitations, dyspnea on exertion, edema, syncope Respiratory: Denies: cough, dyspnea, wheezes, hemoptysis, stridor Gastrointestinal: Denies: abdominal pain, nausea, vomiting, diarrhea, constipation, hematemesis, melena, hematochezia Genitourinary: Denies: urgency, dysuria, frequency, hematuria Musculoskeletal: Denies: back pain, neck pain, arthralgia, myalgia Neurological: Reports: weakness. Denies: headache, numbness, paresthesias Past Medical History - Past Medical History Medical history: Reports: coronary artery disease, hypertension, myocardial infarction, other Surgical history: Reports: appendectomy, orthopedic, other (Bilateral knee replacement x2), other (Tonsillectomy) Psychiatric history: Reports: no psych history - Social History Smoking Status: Former smoker Smokeless Tobacco Status: No Alcohol use: Reports: none, occasionally Drug use: Reports: none Physical Exam - General Limitations: no limitations General appearance: alert, in no apparent distress - Head Head exam: atraumatic, normocephalic, normal inspection - Eye Eye exam: Present: normal appearance, PERRL, EOMI - Neck Neck exam: Present: normal inspection, full ROM, trachea midline - Chest Chest inspection: Present: normal inspection, symmetric chest wall rise - Respiratory Respiratory exam: Present: normal lung sounds bilaterally - Cardiovascular Cardiovascular exam: Present: regular rate, normal rhythm, normal heart sounds - Abdominal Exam Abdominal exam: Present: soft, Non-Tender, normal bowel sounds. Absent: tenderness, distention, guarding, rebound, rigidity - Extremities Exam Extremities exam: Present: normal inspection, full ROM, normal capillary refill (+2 out of 4 dorsalis pedis and posterior tibial pulses bilaterally. +2 out of 4 radial pulses bilaterally.), pedal edema (+2 pitting edema bilaterally). Absent: tenderness - Neurological Exam Neurological exam: Present: alert, oriented X3, CN II-XII intact, reflexes normal - Skin Skin exam: Present: warm, dry, intact, normal color. Absent: cyanosis Course Course Narrative: Patient's main complaint is generalized weakness. EKG showed biphasic T waves in V1 through 3 however when compared to EKG from June 18 there were no changes. Patient denies any shortness of breath or chest pain. We will obtain chest x-ray and troponin to rule out ACS. Weakness could also be secondary to electrolyte abnormalities. We will obtain a BMP. Patient denies any trauma however given context of unwitnessed fall and patient's son stating that he fell in the house, we will obtain a CT of the head and neck to rule out any bleeding or fractures. We will obtain C. difficile toxin assay due to patient being in nursing facility reporting symptoms of diarrhea. Chest x-ray to rule out pneumonia. BMP to check for electrolyte abnormalities. UA to check for UTI. Update 1130: Troponin levels elevated at 0.1. Patient denying any chest pain or shortness of breath. Given recent history of coronary stent placement, reocclusion of infected coronary vessel is a concern. Was able to speak to air vice marshal Dr. Buenrostro who agreed with the plan to do a Hemoccult test to rule out any bleeding and placed the patient on heparin once results are negative. Hemoccult test was negative and patient was subsequently placed on heparin drip. Abdominal CT shows Nonspecific mucosal thickening of a long segment of transverse and descending colon may reflect low-grade nonspecific infectious/ inflammatory colitis. As a result patient was subsequently placed on Cipro and Flagyl. Given history of recent hospitalization C. difficile is also a concern. Although C. difficile assay results are currently pending we will go ahead and give the first dose of oral vancomycin. Was able to speak to hospitalist Dr. Santos who agreed to admit the patient for NSTEMI and colitis. Chest X-Ray 07/15/17 09:55 IMPRESSION: No acute cardiopulmonary disease. D/ / Mejia Torres MD / Mejia Torres MD Interpreting Provider: Mejia Torres MD Abdomen/Pelvis CT 07/15/17 10:11 IMPRESSION: 1. Nonspecific mucosal thickening of a long segment of transverse and descending colon may reflect low-grade nonspecific infectious/inflammatory colitis. If not already recently performed for screening purposes, nonemergent colonoscopy is suggested for further evaluation. 2. Diverticulosis without CT evidence of diverticulitis. 3. Small hiatal hernia. 4. Streaky densities the lung bases may reflect atelectasis, but infectious pneumonitis could have a similar appearance. 5. 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 Please see follow-up guidelines below. 6. Nonobstructing left renal calculus and left renal cysts. RECOMMENDATIONS: Managing Abdominal Aortic Aneurysms 2.6-2.9 cm: Every 5 years* 3.0-3.4 cm: Every 3 years. 3.5-3.9 cm: Every 1 year. 4.0-4.4 cm: Every 1 year. Recommend vascular consultation. 4.5-5.4 cm: Every 6 months. Recommend vascular consultation. Greater than or equal to 5.5 cm: Referral to vascular surgeon. *For abdominal aortas with maximum diameter of 2.6-2.9 cm meeting criteria for AAA (>50% of proximal normal segment). Reference: J Vasc Surg. 2009 Dec;50(4 Suppl):S2-49 D/ / Rajinder Piedra / Rajinder Piedra Interpreting Provider: Rajinder Piedra Cervical Spine CT 07/15/17 10:11 IMPRESSION: No acute abnormality of the cervical spine. Multilevel degenerative disc disease and facet arthropathy, stable compared to previous CT. D/ / 07/15/2017 11:25:10 Mejia Torres MD / kalli Interpreting Provider: Mejia oTrres MD Head CT 07/15/17 10:11 IMPRESSION: No acute intracranial abnormality is seen. Sequela of brain parenchymal atrophy with prominence of the sulci and ventricles is re-demonstrated. D/ / 07/15/2017 11:34:12 Jose Daniel Cantu MD / bcarter Interpreting Provider: Jose Daniel Cantu MD Vital Signs Temperature 100.2 F H 07/15/17 09:27 Pulse Rate 76 07/15/17 09:27 Respiratory Rate 20 07/15/17 09:27 Blood Pressure 136/61 07/15/17 09:27 O2 Sat by Pulse Oximetry 96 07/15/17 09:27 Temperature 100.2 F H 07/15/17 09:42 Pulse Rate 62 07/15/17 10:05 Respiratory Rate 18 07/15/17 10:05 Blood Pressure 140/50 07/15/17 10:05 O2 Sat by Pulse Oximetry 98 07/15/17 10:06 Oxygen Delivery Oxygen Delivery Room Air Weakness - Lab Data Result diagrams: 07/15/17 09:45 07/15/17 09:45 Lab Results 07/15/17 07/15/17 07/15/17 Range/Units 09:45 09:45 09:45 WBC 3.8 L (4.3-11.1) K/mcL RBC 3.80 L (4.19-5.50) M/mcL Hgb 11.4 L (12.9-16.9) g/dL Hct 34.5 L (37.5-50.1) % MCV 90.8 (83.0-100.0) fL MCH 30.0 (28.0-33.3) pg MCHC 33.0 (31.6-35.5) g/dL RDW 15.1 H (11.5-14.5) % Plt Count 99 L (140-400) K/mcL MPV 9.7 (9.4-12.4) fL Immature Gran % 0.3 (0-4) % Seg Neutrophils % 66.1 % Lymphocytes % 18.1 % Monocytes % 14.4 % Eosinophils % 0.3 % Basophils % 0.8 % Neutrophils # 2.5 (1.6-8.9) K/mcL Lymphocytes # 0.7 (0.6-4.6) K/mcL Monocytes # 0.6 (0.0-1.3) K/mcL Eosinophils # 0.0 (0.0-0.6) K/mcL Basophils # 0.0 (0.0-0.2) K/mcL Immature Plt Fraction 2.4 (1.1-6.1) % PT 13.1 H (9.4-12.1) Seconds INR 1.2 APTT 30.0 (26.0-36.0) Seconds Sodium 138 (136-145) mEq/L Potassium 3.9 (3.5-5.1) mEq/L Chloride 106 (98-107) mEq/L Carbon Dioxide 26 (23-29) mEq/L BUN 22 (8-23) mg/dL Creatinine 0.97 (0.70-1.30) mg/dL Est GFR ( Amer) > 60 (> 60) Est GFR (Non-Af Amer) > 60 (> 60) BUN/Creatinine Ratio 23 (6-26) Glucose 90 (70-105) mg/dL Calculated Osmolality 289 (280-300) Lactic Acid (0.5-2.2) mmol/L Calcium 8.8 (8.6-10.3) mg/dL Phosphorus 2.7 (2.7-4.5) mg/dL Magnesium 2.1 (1.6-2.6) mg/dL Total Bilirubin 0.9 (0.3-1.0) mg/dL Direct Bilirubin 0.2 (0.0-0.2) mg/dL Indirect Bilirubin 0.7 (0.0-1.2) mg/dL AST 68 H (13-39) Units/L ALT 37 (7-52) Units/L Alkaline Phosphatase 106 H (34-104) Units/L Troponin I 0.10 H* (< 0.04) ng/mL B-Natriuretic Peptide (Less than 100) pg/mL Serum Total Protein 6.5 (6.4-8.9) g/dL Albumin 3.9 (3.5-5.7) g/dL Globulin 2.6 (2.4-3.5) g/dL Albumin/Globulin Ratio 1.5 (1.1-2.2) Blood Type Antibody Screen 07/15/17 07/15/17 07/15/17 Range/Units 09:45 09:45 10:11 WBC (4.3-11.1) K/mcL RBC (4.19-5.50) M/mcL Hgb (12.9-16.9) g/dL Hct (37.5-50.1) % MCV (83.0-100.0) fL MCH (28.0-33.3) pg MCHC (31.6-35.5) g/dL RDW (11.5-14.5) % Plt Count (140-400) K/mcL MPV (9.4-12.4) fL Immature Gran % (0-4) % Seg Neutrophils % % Lymphocytes % % Monocytes % % Eosinophils % % Basophils % % Neutrophils # (1.6-8.9) K/mcL Lymphocytes # (0.6-4.6) K/mcL Monocytes # (0.0-1.3) K/mcL Eosinophils # (0.0-0.6) K/mcL Basophils # (0.0-0.2) K/mcL Immature Plt Fraction (1.1-6.1) % PT (9.4-12.1) Seconds INR APTT (26.0-36.0) Seconds Sodium (136-145) mEq/L Potassium (3.5-5.1) mEq/L Chloride (98-107) mEq/L Carbon Dioxide (23-29) mEq/L BUN (8-23) mg/dL Creatinine (0.70-1.30) mg/dL Est GFR ( Amer) (> 60) Est GFR (Non-Af Amer) (> 60) BUN/Creatinine Ratio (6-26) Glucose (70-105) mg/dL Calculated Osmolality (280-300) Lactic Acid 1.3 (0.5-2.2) mmol/L Calcium (8.6-10.3) mg/dL Phosphorus (2.7-4.5) mg/dL Magnesium (1.6-2.6) mg/dL Total Bilirubin (0.3-1.0) mg/dL Direct Bilirubin (0.0-0.2) mg/dL Indirect Bilirubin (0.0-1.2) mg/dL AST (13-39) Units/L ALT (7-52) Units/L Alkaline Phosphatase (34-104) Units/L Troponin I (< 0.04) ng/mL B-Natriuretic Peptide 390 H (Less than 100) pg/mL Serum Total Protein (6.4-8.9) g/dL Albumin (3.5-5.7) g/dL Globulin (2.4-3.5) g/dL Albumin/Globulin Ratio (1.1-2.2) Blood Type O NEGATIVE Antibody Screen NEGATIVE - EKG Data EKG shows normal: sinus rhythm, axis, intervals Rate: normal [place]/QRS: normal When compared to previous EKG there are: no significant changes Interpretation: no acute changes, other (Biphasic T waves noticed in V1 to V3.) Attestation Statement - Attestation Attestation: I, Robin Engle DO, examined this patient [id number] and my medical decision-making was reviewed with Melo Cantu PGY-1 Resident Physician. I agree with the documented findings, disposition and treatment plan as described except to the extent set forth below. Please see my progress notes for details.
[2017-07-15 10:31] LABS: Alanine Aminotransferase 37 Units/L (7-52); Albumin 3.9 g/dL (3.5-5.7); Albumin/Globulin Ratio 1.5 (1.1-2.2); Alkaline Phosphatase 106 Units/L (34-104); Aspartate Amino Transferase 68 Units/L (13-39); BUN/Creatinine Ratio 23 (6-26); Bilirubin,Direct 0.2 mg/dL (0.0-0.2); Bilirubin,Indirect 0.7 mg/dL (0.0-1.2); Bilirubin,Total 0.9 mg/dL (0.3-1.0); Blood Urea Nitrogen 22 mg/dL (8-23); Calcium 8.8 mg/dL (8.6-10.3); Carbon Dioxide 26 mEq/L (23-29); Chloride 106 mEq/L (98-107); Globulin 2.6 g/dL (2.4-3.5); Glucose 90 mg/dL (70-105); Magnesium 2.1 mg/dL (1.6-2.6); Osmolality,Calculated 289 (280-300); Phosphorous 2.7 mg/dL (2.7-4.5); Potassium 3.9 mEq/L (3.5-5.1); Sodium 138 mEq/L (136-145); Total Protein 6.5 g/dL (6.4-8.9); eGFR For African Americans > 60 (> 60); eGFR For Non-African Americans > 60 (> 60)
--- NOTE | 2017-07-15 11:15 | Emergency Department Note ---
Disposition Clinical Impression: NSTEMI (non-ST elevated myocardial infarction), Colitis, Weakness Disposition: Admitted As Inpatient Condition: Fair Time of Disposition: 12:06 General Adult HPI - General Chief complaint: ED Weakness Stated complaint: weakness, diarrhea Time Seen by Provider: 07/15/17 09:31 Source: patient, EMS Limitations: no limitations - History of Present Illness Pain Scale: 0 - Related Data Home Medications Medication Instructions Recorded Confirmed Clopidogrel [Plavix] 75 mg PO DAILY 06/10/15 07/15/17 Omeprazole [PriLOSEC] 40 mg PO DAILY 10/20/16 07/15/17 Warfarin [Coumadin] 5 mg PO DAILY 10/20/16 07/15/17 Atorvastatin [Lipitor] 40 mg PO HS 07/15/17 07/15/17 Furosemide [Lasix] 20 mg PO DAILY 07/15/17 07/15/17 Nitroglycerin [Nitrostat] 0.4 mg SL Q5MIN PRN 07/15/17 07/15/17 Previous Rx's Medication Instructions Recorded amLODIPine [Norvasc] 5 mg PO DAILY #30 tab 10/24/16 Aspirin 81 mg PO DAILY tab.chew 06/21/17 Isosorbide MONOnitrate (24 HR) 60 mg PO DAILY tab.er.24h 06/21/17 [Imdur] Lisinopril [Zestril] 5 mg PO DAILY tablet 06/21/17 Metoprolol [Lopressor] 25 mg PO BID tablet 06/21/17 Tramadol HCl [Ultram] 50 mg PO BID 2 Days #4 tablet 06/21/17 Allergies Allergy/AdvReac Type Severity Reaction Status Date / Time No Known Allergies Allergy Verified 07/15/17 09:27 Constitutional: Reports: fever, weakness Cardiovascular: Denies: chest pain, palpitations, dyspnea on exertion, edema, syncope Respiratory: Denies: cough, dyspnea, wheezes, hemoptysis, stridor Gastrointestinal: Denies: abdominal pain, nausea, vomiting, diarrhea, constipation, hematemesis, melena, hematochezia Genitourinary: Denies: urgency, dysuria, frequency, hematuria Musculoskeletal: Denies: back pain, neck pain, arthralgia, myalgia Neurological: Reports: weakness. Denies: headache, numbness, paresthesias Past Medical History - Past Medical History Medical history: Reports: coronary artery disease, hypertension, myocardial infarction, other Surgical history: Reports: appendectomy, orthopedic, other (Bilateral knee replacement x2), other (Tonsillectomy) Psychiatric history: Reports: no psych history - Social History Smoking Status: Former smoker Smokeless Tobacco Status: No Alcohol use: Reports: none, occasionally Drug use: Reports: none Physical Exam - General Limitations: no limitations General appearance: alert, in no apparent distress Course Vital Signs Temperature 100.2 F H 07/15/17 09:27 Pulse Rate 76 07/15/17 09:27 Respiratory Rate 20 07/15/17 09:27 Blood Pressure 136/61 07/15/17 09:27 O2 Sat by Pulse Oximetry 96 07/15/17 09:27 Temperature 100.2 F H 07/15/17 09:42 Pulse Rate 62 07/15/17 10:05 Respiratory Rate 18 07/15/17 10:05 Blood Pressure 140/50 07/15/17 10:05 O2 Sat by Pulse Oximetry 98 07/15/17 10:06 Oxygen Delivery Oxygen Delivery Room Air Medical Decision Making - Lab Data Result diagrams: 07/15/17 09:45 07/15/17 09:45 Lab Results 07/15/17 07/15/17 07/15/17 Range/Units 09:45 09:45 09:45 WBC 3.8 L (4.3-11.1) K/mcL RBC 3.80 L (4.19-5.50) M/mcL Hgb 11.4 L (12.9-16.9) g/dL Hct 34.5 L (37.5-50.1) % MCV 90.8 (83.0-100.0) fL MCH 30.0 (28.0-33.3) pg MCHC 33.0 (31.6-35.5) g/dL RDW 15.1 H (11.5-14.5) % Plt Count 99 L (140-400) K/mcL MPV 9.7 (9.4-12.4) fL Immature Gran % 0.3 (0-4) % Seg Neutrophils % 66.1 % Lymphocytes % 18.1 % Monocytes % 14.4 % Eosinophils % 0.3 % Basophils % 0.8 % Neutrophils # 2.5 (1.6-8.9) K/mcL Lymphocytes # 0.7 (0.6-4.6) K/mcL Monocytes # 0.6 (0.0-1.3) K/mcL Eosinophils # 0.0 (0.0-0.6) K/mcL Basophils # 0.0 (0.0-0.2) K/mcL Immature Plt Fraction 2.4 (1.1-6.1) % PT 13.1 H (9.4-12.1) Seconds INR 1.2 APTT 30.0 (26.0-36.0) Seconds Sodium 138 (136-145) mEq/L Potassium 3.9 (3.5-5.1) mEq/L Chloride 106 (98-107) mEq/L Carbon Dioxide 26 (23-29) mEq/L BUN 22 (8-23) mg/dL Creatinine 0.97 (0.70-1.30) mg/dL Est GFR ( Amer) > 60 (> 60) Est GFR (Non-Af Amer) > 60 (> 60) BUN/Creatinine Ratio 23 (6-26) Glucose 90 (70-105) mg/dL Calculated Osmolality 289 (280-300) Lactic Acid (0.5-2.2) mmol/L Calcium 8.8 (8.6-10.3) mg/dL Phosphorus 2.7 (2.7-4.5) mg/dL Magnesium 2.1 (1.6-2.6) mg/dL Total Bilirubin 0.9 (0.3-1.0) mg/dL Direct Bilirubin 0.2 (0.0-0.2) mg/dL Indirect Bilirubin 0.7 (0.0-1.2) mg/dL AST 68 H (13-39) Units/L ALT 37 (7-52) Units/L Alkaline Phosphatase 106 H (34-104) Units/L Troponin I 0.10 H* (< 0.04) ng/mL B-Natriuretic Peptide (Less than 100) pg/mL Serum Total Protein 6.5 (6.4-8.9) g/dL Albumin 3.9 (3.5-5.7) g/dL Globulin 2.6 (2.4-3.5) g/dL Albumin/Globulin Ratio 1.5 (1.1-2.2) Blood Type Antibody Screen 07/15/17 07/15/17 07/15/17 Range/Units 09:45 09:45 10:11 WBC (4.3-11.1) K/mcL RBC (4.19-5.50) M/mcL Hgb (12.9-16.9) g/dL Hct (37.5-50.1) % MCV (83.0-100.0) fL MCH (28.0-33.3) pg MCHC (31.6-35.5) g/dL RDW (11.5-14.5) % Plt Count (140-400) K/mcL MPV (9.4-12.4) fL Immature Gran % (0-4) % Seg Neutrophils % % Lymphocytes % % Monocytes % % Eosinophils % % Basophils % % Neutrophils # (1.6-8.9) K/mcL Lymphocytes # (0.6-4.6) K/mcL Monocytes # (0.0-1.3) K/mcL Eosinophils # (0.0-0.6) K/mcL Basophils # (0.0-0.2) K/mcL Immature Plt Fraction (1.1-6.1) % PT (9.4-12.1) Seconds INR APTT (26.0-36.0) Seconds Sodium (136-145) mEq/L Potassium (3.5-5.1) mEq/L Chloride (98-107) mEq/L Carbon Dioxide (23-29) mEq/L BUN (8-23) mg/dL Creatinine (0.70-1.30) mg/dL Est GFR ( Amer) (> 60) Est GFR (Non-Af Amer) (> 60) BUN/Creatinine Ratio (6-26) Glucose (70-105) mg/dL Calculated Osmolality (280-300) Lactic Acid 1.3 (0.5-2.2) mmol/L Calcium (8.6-10.3) mg/dL Phosphorus (2.7-4.5) mg/dL Magnesium (1.6-2.6) mg/dL Total Bilirubin (0.3-1.0) mg/dL Direct Bilirubin (0.0-0.2) mg/dL Indirect Bilirubin (0.0-1.2) mg/dL AST (13-39) Units/L ALT (7-52) Units/L Alkaline Phosphatase (34-104) Units/L Troponin I (< 0.04) ng/mL B-Natriuretic Peptide 390 H (Less than 100) pg/mL Serum Total Protein (6.4-8.9) g/dL Albumin (3.5-5.7) g/dL Globulin (2.4-3.5) g/dL Albumin/Globulin Ratio (1.1-2.2) Blood Type O NEGATIVE Antibody Screen NEGATIVE Attestation Statement - Attestation Attestation: I, Robin Engle DO, examined this patient [id number] and my medical decision-making was reviewed with Melo Cantu PGY-1, Resident Physician. I agree with the documented findings, disposition and treatment plan as described except to the extent set forth below. Please see my progress notes for details. 89-year-old male presents to the emergency room for multiple complaints including generalized weakness, diarrhea, inability to take care of himself at home, lower extremity swelling. Patient has recently evaluated in the hospital 3 weeks ago for same type of symptoms. He had a cardiac catheterization completed on 06/18/17. He had one stent placed in the LAD that time. Patient was started on Coumadin for home as well as given Plavix. Patient with cardiac rehabilitation outside facility. 7 days ago he went back to his home. He has had 2 falls since going home. He denies any head injury or loss of consciousness. Patient's family is concerned today because he can progressively getting more weak and unable to take care of himself and his at home. They were more concerned about possible placement considering he has not been able to manage these things home the way he would like. Family is concerned that he may fall or injure himself. On presentation his vital signs are otherwise unremarkable. He does have a fever up to 100.2. No specific infectious etiology outside of the diarrhea was noted. He has had intermittent fevers and chills. Because of the presentation as well as a hospitalization intervention by medical management patient will have a detailed evaluation completed here today in clinic CT of the head and neck along with CT the abdomen. CBC chemistry lipase LFTs urinalysis C. difficile culture as well as other infectious etiologies will be evaluated and ruled out here in this treatment course. Troponin and BNP will also be collected as well as EKG secondary to the patient's most recent catheterization. Coagulation numbers will be addressed and reviewed as well. Patient is otherwise clinically stable. Is resting comfortably in the bed he denies any symptoms at this point outside of just feeling weak. Patient says he just feels so weak that he is unable to get up out of his chair and cannot take care of anything. Lungs are clear heart is regular abdomen is soft nontender nondistended no guarding no rigidity. The insertion site for the catheterization appears to be stable no masses or infectious etiology noted. Patient has good pulses in the upper and lower extremities. There is no neurologic deficits. Cranial nerves II through XII are grossly intact and the patient speaking in full sentences with no facial asymmetry. Patient will have detailed evaluation. Here today and then expect that he will most likely require admission to better upon the findings during the treatment course. Patient is otherwise currently stable. Tylenol will be given for the febrile- like presentation but no antibiotics at this point to the patient does not have a clinical sign of extraction at this point. See detailed documentation of the physical exam, medical intervention, medical decision-making and disposition in the resident physician's note. No critical care applied to the patient's treatment course at this time. 1115 CT of the head and neck unremarkable at this time. No acute pathology. Patient has stable white blood cell count hemoglobin is 11.4 which is approximately 1 g are somewhat was not left the hospital. Troponin is elevated today at 0.1. Patient denies chest pain or shortness of breath this time. Cardiology was contacted us further insight. Recommended Hemoccult testing and then placing the patient on heparin drip at this time considering he is subtherapeutic on his INR. Patient is otherwise Hemoccult negative on evaluation. Heparin drip will be started. Symptoms to be evaluated and treated. CT imaging the abdomen is still pending. No infectious etiology noted at this point considering his influenza swab is negative and his chest x- ray does not show any acute signs of infiltrate. Patient will not have antibiotics started this time. Clostridium difficile testing still pending. Patient was discussed with the hospitalist Dr. Santos. We reviewed the presentation symptoms medical intervention and conversation with cardiology and is comfortable making the patient this time for further management. No other acute concerns or issues noted this time. No critical care applied to the treatment course. Patient is otherwise clinically stable time of admission. We will continue monitoring in the emergency room until admission process is completed
[2017-07-15] MEDS ORDERED: Heparin 25,000 UNIT/500 ML D5W 25,000 UNIT/500 ML BAG IVC SCH (11:30)
[2017-07-15] MEDS ORDERED: metroNIDAZOLE 500 MG TABLET PO ONE (11:37)
[2017-07-15] MEDS ORDERED: Naloxone 0.4 MG/ML INJ IVP PRN (12:32)
[2017-07-15] MEDS ORDERED: Nitroglycerin 0.4 MG TAB.SUBL SL PRN (12:42)
--- NOTE | 2017-07-15 12:45 | Internal Med History&Physical ---
Date of Encounter: 07/15/17 Time of Encounter: 12:38 Internal Medicine - H&P: HPI Admitted From: Home Plans for Post Hospital Care: Home History of present illness: Mr. Linares is a 89 year old male with a past medical history of CAD status stent , history of LV thrombus in 2016 On Coumadin, recent IN with 1 coronary stent placed 3 weeks ago presents to ER for generalized weakness and diarrhea for last 6 days. Patient had 5-6 watery runny diarrhea per day associated with nausea with occasional vomiting . Now vomiting almost stopped but decreased appetite eventually led to generalized weakness . Patient was released from an ECF last week and was doing okay but after starting multiple episodes of diarrhea he started to feel generalized weakness and that progressed to the point that he was not able to ambulate without assistance therefore decided to come to ER. He denies any numbness or tingling. Denies any abdominal pain, melena or hematochezia. Patient Denies constipation, dysuria or hematuria. Admits to subjective fever but no chills. Denies any cough or shortness of breath, chest pain. He admits to slight bilateral ankle edema since he had his coronary stents placed in. In ER mild temperature elevation 100.2 along with mild leukopenia and raised troponin was noticed. CT abdomen with suspected colitis. ER physician talked to grill attendant who advised to start heparin drip for NST IN. Initial antibiotic Vancomycin, Cipro and Flagyl was initiated for the suspected C. difficile. Your physician called on-call hospitalists for the admission with the diagnosis of NST IN in colitis and assessment. Past Med Surg Social Fam HX - Past Medical History Medical history: coronary artery disease, hypertension, myocardial infarction, other Psychiatric history: no psych history - Past Surgical History Surgical History: appendectomy, orthopedic, other (Bilateral knee replacement x2 ), other (Tonsillectomy) - Social History Smoking Status: Former smoker Smokeless Tobacco Status: No Alcohol use: none, occasionally Drug use: none - Family History Father Family Member Ethnicity: Non- Living Status: Brother Family Member Ethnicity: Non- Living Status: Hx Family Cancer: Yes Mother Adopted: No Family Member Ethnicity: Non- Living Status: Hx Family Cardiac Disorders: No Hx Family Respiratory Disorders: No Hx Family Cancer: No Hx Family GI Disorders: No Hx Family Endocrine Disorder: No Hx Family Neuromuscular Disorders: No Hx Family Neurologic Disorders: No Hx Family HEENT Disorders: No Hx Family Autoimmune Disorders: No Internal Medicine - H&P: Meds Clopidogrel [Plavix] 75 mg PO DAILY 06/10/15 [History] Omeprazole [PriLOSEC] 40 mg PO DAILY 10/20/16 [History] Warfarin [Coumadin] 5 mg PO DAILY 10/20/16 [History] amLODIPine [Norvasc] 5 mg PO DAILY #30 tab 10/24/16 [Rx] Aspirin 81 mg PO DAILY tab.chew 06/21/17 [Rx] Isosorbide MONOnitrate (24 HR) [Imdur] 60 mg PO DAILY tab.er.24h 06/21/17 [Rx] Lisinopril [Zestril] 5 mg PO DAILY tablet 06/21/17 [Rx] Metoprolol [Lopressor] 25 mg PO BID tablet 06/21/17 [Rx] Tramadol HCl [Ultram] 50 mg PO BID 2 Days #4 tablet 06/21/17 [Rx] Atorvastatin [Lipitor] 40 mg PO HS 07/15/17 [History] Furosemide [Lasix] 20 mg PO DAILY 07/15/17 [History] Nitroglycerin [Nitrostat] 0.4 mg SL Q5MIN PRN 07/15/17 [History] 3 Allergy/AdvReac Type Severity Reaction Status Date / Time No Known Allergies Allergy Verified 07/15/17 09:27 All Systems PM: as documented above in the HPI. - Constitutional Vitals: Temp Pulse Resp BP Pulse Ox 100.2 F H 62 18 140/50 98 07/15/17 09:42 07/15/17 10:05 07/15/17 10:05 07/15/17 10:05 07/15/17 10:06 Exam: General appearance: No acute distress, A&O X 2 not able to tell exact time. Hard of hearing. Family at bedside Head exam: Atraumatic Eye exam: EOMI, PERRLA ENT exam: Moist oral mucosa Neck nontender, supple Respiratory exam: Clear to auscultation bilaterally Cardiovascular exam: Regular rate and rhythm, no systolic murmur Abdominal exam: Soft, nontender, nondistended, positive bowel sounds Extremities exam: No calf tenderness, +1 bilateral pedal edema Present: Skin-no rash, warm, dry Neurological exam: Alert, awake, CN II-XII intact, no focal deficits. No facial droop. Normal but slow speech. Not able to assess gait due to generalized weakness. Equal motor strength in all 4 extremities Internal Med - H&P Results - Labs CBC & Chem 7: 07/15/17 09:45 07/15/17 09:45 - Assessment and plan (1) NSTEMI (non-ST elevated myocardial infarction) Current Visit: Yes Status: Acute Assessment and plan: History of complicated cardiac history. No active chest pain. Recent stent placement. Raised troponin but no active ST-T wave change on EKG. Telemetric bed, serial cardiac enzyme and cardiology consultation. ER physician already talked to on-call grill attendant who advised to start heparin drip once Hemoccult negative. Will continue home medication. Risk of bleeding discussed with patient and family.recent echocardiogram with ejection fraction 55%. (2) Colitis Current Visit: Yes Status: Acute Assessment and plan: Persistent diarrhea. Recent exposure from healthcare system being in the hospital and also skilled nursing therefore high risk to get C. difficile exposure. C. difficile ordered but report is still awaited. Stool panel ordered. Empirical treatment with oral vancomycin, Cipro and Flagyl was started in the ER. Will continue Cipro and Flagyl oral for now. No bowel movements since admission. Patient denies any abdominal pain, does not appear in significant dehydration but has slight pedal edema and has been on Lasix at home therefore no IV fluid is started but encouraged liquid diet and held diuretic. (3) LV (left ventricular) mural thrombus Current Visit: Yes Status: Chronic Assessment and plan: Patient has been on warfarin and under care of grill attendant to monitor. PT/INR subtherapeutic therefore will continue home dose of warfarin for now while on heparin drip. Further plan as per cardiology advice. He may need repeat echocardiogram to observe complete resolution of thrombus. Daily PT/INR monitoring (4) DVT prophylaxis Current Visit: Yes Status: Acute Assessment and plan: Patient is on multiple blood thinner medicines - Time Spent With Patient Total time spent is greater than 50% in coordination of care (as documented) at patient's floor/unit and/or counseling patient: 25 - 35 minutes
[2017-07-15] MEDS: metroNIDAZOLE 500 MG TABLET PO SCH ×2 (16:50→22:01)
[2017-07-15] MEDS: Vancomycin Oral Soln 250 MG/5 ML UDC PO SCH ×3 (16:51→22:02)
[2017-07-15] MEDS: *HR* Warfarin 5 MG TABLET PO SCH (16:51)
[2017-07-16 01:58] LABS: Basophils % 0.8 %; Eosinophils # 0.1 K/mcL (0.0-0.6); Eosinophils % 2.7 %; Hematocrit 33.7 % (37.5-50.1); Hemoglobin 10.9 g/dL (12.9-16.9); Immature Granulocytes % 0.8 % (0-4); Lymphocytes % 28.9 %; Mean Corpuscular HGB Conc 32.3 g/dL (31.6-35.5); Mean Corpuscular Hemoglobin 29.5 pg (28.0-33.3); Mean Corpuscular Volume 91.1 fL (83.0-100.0); Mean Platelet Volume 10.1 fL (9.4-12.4); Monocytes # 0.4 K/mcL (0.0-1.3); Monocytes % 15.2 %; Neutrophils # 1.3 K/mcL (1.6-8.9); Red Cell Distribution Width 15.2 % (11.5-14.5); Segmented Neutrophils % 51.6 %
[2017-07-16 02:00] LABS: Lymphocytes # 0.8 K/mcL (0.6-4.6); Platelet Count 78 K/mcL (140-400)
[2017-07-16 02:17] LABS: BUN/Creatinine Ratio 24 (6-26); Blood Urea Nitrogen 19 mg/dL (8-23); Calcium 8.2 mg/dL (8.6-10.3); Carbon Dioxide 25 mEq/L (23-29); Chloride 107 mEq/L (98-107); Glucose 79 mg/dL (70-105); INR 1.3; Osmolality,Calculated 287 (280-300); Potassium 3.7 mEq/L (3.5-5.1); Prothrombin Time 14.4 Seconds (9.4-12.1); Sodium 138 mEq/L (136-145); eGFR For African Americans > 60 (> 60); eGFR For Non-African Americans > 60 (> 60)
[2017-07-16 02:37] LABS: Activated Partial Thrombo Time 142.9 Seconds (26.0-36.0)
[2017-07-16 02:42] LABS: Heparin anti-factor XA UFH 0.66 IU/mL (0.30-0.70)
[2017-07-16 06:02] LABS: Bilirubin,Urine Negative (Negative); Blood,Urine Negative (Negative); Clarity,Urine Clear (Clear); Color,Urine Dark Yellow (Yellow); Glucose,Urine (UA) Normal (Normal); Ketones,Urine Negative (Negative); Leukocyte Esterase,Urine Negative (Negative); Nitrite,Urine Negative (Negative); PH,Urine 5.5 pH Units (5.0-8.0); Protein,Urine 30 mg/dL (Neg-Trace); Specific Gravity,Urine 1.026 (1.010-1.025); Urobilinogen,Urine Normal (Normal)
[2017-07-16 06:05] LABS: Bacteria,Urine None Seen per hpf (None-Few); Hyaline Casts,Urine None Seen per lpf (None-Few); Squamous Epithelial Cell,Urine Many per lpf (None-Few); WBC,Urine 0-3 per hpf (0-3)
[2017-07-16] MEDS ORDERED: Isosorbide MONOnitrate (24 HR) 60 MG TAB.ER.24H PO SCH (09:00)
[2017-07-16] MEDS: amLODIPine 5 MG TABLET PO SCH (10:27)
[2017-07-16] MEDS: Vancomycin Oral Soln 250 MG/5 ML UDC PO SCH ×4 (10:27→23:37)
[2017-07-16] MEDS: metroNIDAZOLE 500 MG TABLET PO SCH ×3 (10:27→23:36)
[2017-07-16] MEDS: Aspirin 81 MG TAB.CHEW PO SCH (10:27)
--- NOTE | 2017-07-16 11:26 | Internal Med Progress Note ---
Date of Encounter: 07/16/17 Time of Encounter: 11:22 - Assessment and plan (1) Thrombocytopenia Current Visit: Yes Status: Acute Assessment and plan: baseline PLT count 150s, in 06/2017 Now with 78, 99 on admission, patient with multiple exposures to heparin due to CAD with NSTEMI Discontinue heparin for now Cardio eval is pending Repeat PLT count in citrate tube Low suspicion for HIT, will continue to follow (2) NSTEMI (non-ST elevated myocardial infarction) Current Visit: Yes Status: Suspected Assessment and plan: Suspected Patient with no chest pain this time Continue current meds-DAPT, Imdur, Lisinopeil, Metoprolol, NTG prn Troponin is 006 cardio eval is pending (3) Colitis Current Visit: Yes Status: Acute Assessment and plan: Abd CT noted, continue cipro and flagyl Stool not watery enough for c.diff testing low suspicion for c.diff (4) LV (left ventricular) mural thrombus Current Visit: Yes Status: Chronic Assessment and plan: Patient has been on warfarin and under care of timber framer to monitor. PT/INR subtherapeutic, started on heparin by admitting , however, rapid drop to 50% of baseline of PLT Hold heparin for now Continue Coumadin till cardio eval Last ECHO noted-unable to state of thrombus resolved or not Will obtain repeat limited ECHO (5) DVT prophylaxis Current Visit: Yes Status: Acute Assessment and plan: Patient is on multiple blood thinner medicines - Time Spent With Patient Total time spent is greater than 50% in coordination of care (as documented) at patient's floor/unit and/or counseling patient: - Subjective Interval history: Seen and evaluated at bedside Mr Linares is a 89 M with recent admissions due to NSTEMI, Vtach s/p C with stent placement, LV thrombus on Coumadin, Other medical hx includes CHFpEF , HTN , HLD. He is admitted to observation for management of suspected NSTEMI, colitis. The patient's admitting symptoms were diarrhea and generalized weakness. In ER mild temperature elevation 100.2 along with mild leukopenia and raised troponin was noticed. CT abdomen with suspected colitis. ER physician talked to timber framer who advised to start heparin drip for NSTEMI. Cipro and Flagyl was initiated for colitis Of note, patient also has thrombocytopenia, his prior PLT count was WNL, PLT this a.mm is 78 He denies new complains, cardio eval is pending We will discontinue heparin due to rapidly dropping PLT and suspicion for HIT - Constitutional Vitals: Temp Pulse Resp BP Pulse Ox 98.4 F 55 20 137/61 92 07/16/17 07:57 07/16/17 07:57 07/16/17 07:57 07/16/17 07:57 07/16/17 05:00 General appearance: Present: A&O X 3, pleasant, no acute distress - Head Head exam: Present: atraumatic, normocephalic - Eye Eye exam: Present: PERRL, conjuntiva pink, sclera anicteric Pupils: Present: PERRL - Neck Neck exam general surgery: Present: supple, trachea midline. Absent: lymphadenopathy - Respiratory Respiratory exam: Present: CTAB. Absent: accessory muscle use, rales, rhonchi, wheezes - Cardiovascular Cardiovascular exam: Present: RRR, +S1, +S2. Absent: diastolic murmur, gallop, rubs, systolic murmur - GI/Abdominal GI/Abdominal exam: Present: normal bowel sounds, soft, no peritoneal signs. Absent: distended, tenderness - Extremities Exam Extremities exam: Present: warm, radial pulses palpable and symmetrical. Absent : calf tenderness, cyanotic, pedal edema - Neurological Exam Neurological exam: Present: alert, CN II-XII intact, oriented X3, no focal deficits. Absent: pronater drift, facial droop, speech deficit - Skin Skin exam: Present: dry, intact Internal Medicine: Result - Labs CBC & Chem 7: 07/16/17 00:36 07/16/17 00:36 Labs: Short CBC 07/16/17 Range/Units 00:36 WBC 2.6 L (4.3-11.1) K/mcL Hgb 10.9 L (12.9-16.9) g/dL Hct 33.7 L (37.5-50.1) % Plt Count 78 L (140-400) K/mcL Neutrophils # 1.3 L (1.6-8.9) K/mcL BMP 07/16/17 00:36 Sodium 138 Potassium 3.7 Chloride 107 Carbon Dioxide 25 BUN 19 Creatinine 0.80 Glucose 79 Calcium 8.2 L Cardiac Enzymes 07/15/17 07/15/17 07/16/17 Range/Units 13:15 18:23 00:36 Troponin I 0.09 H* 0.07 H* 0.06 H* (< 0.04) ng/mL Urine 07/16/17 Range/Units 05:50 Urine Color Dark Yellow (Yellow) Urine Clarity Clear (Clear) Urine pH 5.5 (5.0-8.0) pH Units Ur Specific Hodgen 1.026 H (1.010-1.025) Urine Protein 30 H (Neg-Trace) mg/dL Urine Glucose (UA) Normal (Normal) mg/dL - ABG Interpretation ABG results: PT/INR, D-dimer PT 14.4 Seconds (9.4-12.1) H 07/16/17 00:36 Consult Discharge Plan - Plan Referrals: Segun Damon MD [Primary Care Provider] -
[2017-07-16] MEDS ORDERED: 0.9 % Sodium Chloride 1,000 ML IVC ONE (11:33)
--- NOTE | 2017-07-16 11:57 | Cardiology Consult Note ---
<Jonathon Rivera Teresa - Last Filed: 07/16/17 12:32> Date of Encounter: 07/16/17 Time of Encounter: 12:00 Assessment and Plan (1) Colitis Current Visit: Yes Status: Acute Per Cardiology: Management per primary service. On antibiotics. Noted to be incontinent of loose stool today. (2) Elevated troponin I measurement Current Visit: Yes Status: Acute Per Cardiology: Troponins flat, adynamic, peak of 0.10 in the setting of diarrhea and colitis. Suspect demand ischemia. No cardiac rehabilitation consult at this time, had completed during recent hospital stay and stenting last month. Appears CP free. Current echo pending. (3) CAD (coronary artery disease) Current Visit: No Status: Chronic Per Cardiology: Patient with known history of CAD and recent catheterization June 2017 at which point in time patient did receive drug-eluting stent to mid LAD 90% lesion. Has remaining proximal circumflex 50% and OM1 65% lesions. Has mid RCA 100% lesion with right to left collaterals. On aspirin, Plavix, statin, ACEI, beta joel, long-acting nitrate. Chest pain-free. Seen in office few days ago by cardiology and chest pain-free. Qualifiers: Coronary Disease-Associated Artery/Lesion type: [place] artery [place] vs. transplanted heart: [place] heart Associated angina: with other forms of angina Qualified Code(s): I25.118 - Atherosclerotic heart disease of [place] coronary artery with other forms of angina pectoris (4) Thrombocytopenia Current Visit: Yes Status: Acute Per Cardiology: On aspirin and Plavix. Apparently started on IV heparin drip by primary service for concerns of elevated troponin/questionable non-STEMI. PLT 170's last month, now in the 70's. Agree with discontinuation of IV heparin drip. 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 Most recent echo June 2017 showed EF 55%, mild diastolic dysfunction, mildly dilated left ventricle, normal RV structure and function, "cannot completely rule out LV clot , however compared to previous echo majority has resolved ". Was in process of outpatient repeat echo for further evaluation. Current echo pending. On Coumadin for anticoagulation. We will need to monitor very closely with aspirin , Plavix, Coumadin and now with thrombocytopenia. H&H currently about baseline. No blood noted in stool today. We will consider discontinuation of Coumadin if able based on echo results. Current INR 1.3. Will discuss and review with Dr. Buenrostro. Discussion w patient/family: Thank you for involving us in the care of your patient. Please call with any questions. History of Present Illness Consult date: 07/16/17 Requesting physician: Melo Guy Consult reason: Elevated Trop, Hx CAD Chief complaint: Patient unsure why came in-- confirms weakness History of present illness: Mr. Linares is a 89 year old male with a relevant past medical history of CAD, HLD , AAA, PVD, COPD, hypertension, hx CVA, LV Apical Thrombus. Was just seen by Dr. Bailey 07/13/17 as outpatient for f/u after stenting. Note reviewed and appears was having weakness and fatigue with diarrhea from rehab facility. At that appointment repeat echo was ordered and consideration of adding Lasix based on BMP results. Cardiology consult for mild troponin elevation with history of CAD. Patient attempted to be seen this morning, however in process of being cleaned up and noted to be incontinent of stool while in chair. Patient able to be seen this afternoon. No family at bedside. Patient alert to person, was not sure where he is, did not know year. Patient pleasant and cooperative. Denies any CP, SOB. Not aware of any bleeding or blood loss. He believes his son brought him to hospital for weakness. Past Med Surg Social Fam HX - Past Medical History Attestation: Yes The following information was validated with the patient. Source: patient, old records reviewed Medical history: coronary artery disease, hypertension, myocardial infarction, other Psychiatric history: no psych history - Past Surgical History Surgical History: angioplasty/stent, appendectomy, orthopedic, other, other - Social History Smoking Status: Former smoker Smokeless Tobacco Status: No Alcohol use: none Drug use: none - Family History Father Family Member Ethnicity: Non- Living Status: Age at : 88 Brother Family Member Ethnicity: Non- Living Status: Hx Family Cancer: Yes Mother Adopted: No Family Member Ethnicity: Non- Living Status: Hx Family Cardiac Disorders: No Hx Family Respiratory Disorders: No Hx Family Cancer: No Hx Family GI Disorders: No Hx Family Endocrine Disorder: No Hx Family Neuromuscular Disorders: No Hx Family Neurologic Disorders: No Hx Family HEENT Disorders: No Hx Family Autoimmune Disorders: No Medications and Allergies Clopidogrel [Plavix] 75 mg PO DAILY 06/10/15 [History] Omeprazole [PriLOSEC] 40 mg PO DAILY 10/20/16 [History] Warfarin [Coumadin] 5 mg PO DAILY 10/20/16 [History] amLODIPine [Norvasc] 5 mg PO DAILY #30 tab 10/24/16 [Rx] Aspirin 81 mg PO DAILY tab.chew 06/21/17 [Rx] Isosorbide MONOnitrate (24 HR) [Imdur] 60 mg PO DAILY tab.er.24h 06/21/17 [Rx] Lisinopril [Zestril] 5 mg PO DAILY tablet 06/21/17 [Rx] Metoprolol [Lopressor] 25 mg PO BID tablet 06/21/17 [Rx] Tramadol HCl [Ultram] 50 mg PO BID 2 Days #4 tablet 06/21/17 [Rx] Atorvastatin [Lipitor] 40 mg PO HS 07/15/17 [History] Furosemide [Lasix] 20 mg PO DAILY 07/15/17 [History] Nitroglycerin [Nitrostat] 0.4 mg SL Q5MIN PRN 07/15/17 [History] 3 Allergy/AdvReac Type Severity Reaction Status Date / Time No Known Allergies Allergy Verified 07/15/17 09:27 All Systems Review: The remainder of the systems were reviewed and are negative - Constitutional Constitutional: fatigue, weakness - Cardiovascular Cardiovascular: as per HPI - Gastrointestinal Gastrointestinal: diarrhea Physical Examination Selected Entries 07/15/17 22:00 07/16/17 05:00 07/16/17 07:57 Temperature 98.4 F Pulse Rate 55 Respiratory Rate 20 Blood Pressure 137/61 O2 Sat by Pulse Oximetry 92 Oxygen Flow Rate (LPM) 2 Oxygen Delivery Method Nasal Cannula General: Conversant, No Apparent Distress HEENT: Atraumatic, Normocephaly, Mucus Membranes Moist Neck: No JVD, Normal carotid pulses Cardiac: Reg Rate and Rhythm, Normal S1 and S2, No Murmur Lungs: Normal Breath Sounds, No Wheeze, Rales, Rhonchi Neuro: Alert and responsive, No focal deficits noted, Other (alert to person, cooperative) Abdomen: Soft, Non-Tender Skin: No rashes noted on visualized skin Musculoskeletal: No Chest Wall Tenderness Extremities: No Clubbing, No Cyanosis, No Edema, Normal Pulses Results 07/16/17 00:36 07/16/17 00:36 Lab Results Laboratory Tests 10/26/16 06/17/17 06/22/17 04:34 10:39 04:47 Hgb 11.7 L Hct Plt Count 183 124 L 172 INR Creatinine Est GFR (Non-Af Amer) AST ALT Troponin I B-Natriuretic Peptide 07/15/17 07/15/17 07/15/17 09:45 09:45 09:45 Hgb 11.4 L Hct 34.5 L Plt Count 99 L INR Creatinine Est GFR (Non-Af Amer) AST 68 H ALT 37 Troponin I 0.10 H* B-Natriuretic Peptide 390 H 07/15/17 07/15/17 07/16/17 13:15 18:23 00:36 Hgb Hct Plt Count INR Creatinine Est GFR (Non-Af Amer) AST ALT Troponin I 0.09 H* 0.07 H* 0.06 H* B-Natriuretic Peptide 07/16/17 07/16/17 07/16/17 00:36 00:36 00:36 Hgb 10.9 L Hct 33.7 L Plt Count 78 L INR 1.3 Creatinine 0.80 Est GFR (Non-Af Amer) > 60 AST ALT Troponin I B-Natriuretic Peptide ITS Impressions Chest X-Ray 07/15/17 09:55 IMPRESSION: No acute cardiopulmonary disease. D/ / Mejia Torres MD / Mejia Torres MD Interpreting Provider: Mejia Torres MD Abdomen/Pelvis CT 07/15/17 10:11 IMPRESSION: 1. Nonspecific mucosal thickening of a long segment of transverse and descending colon may reflect low-grade nonspecific infectious/inflammatory colitis. If not already recently performed for screening purposes, nonemergent colonoscopy is suggested for further evaluation. 2. Diverticulosis without CT evidence of diverticulitis. 3. Small hiatal hernia. 4. Streaky densities the lung bases may reflect atelectasis, but infectious pneumonitis could have a similar appearance. 5. 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 Please see follow-up guidelines below. 6. Nonobstructing left renal calculus and left renal cysts. RECOMMENDATIONS: Managing Abdominal Aortic Aneurysms 2.6-2.9 cm: Every 5 years* 3.0-3.4 cm: Every 3 years. 3.5-3.9 cm: Every 1 year. 4.0-4.4 cm: Every 1 year. Recommend vascular consultation. 4.5-5.4 cm: Every 6 months. Recommend vascular consultation. Greater than or equal to 5.5 cm: Referral to vascular surgeon. *For abdominal aortas with maximum diameter of 2.6-2.9 cm meeting criteria for AAA (>50% of proximal normal segment). Reference: J Vasc Surg. 2009 Dec;50(4 Suppl):S2-49 D/ / Rajinder Piedra / Rajinder Piedra Interpreting Provider: Rajinder Piedra Cervical Spine CT 07/15/17 10:11 IMPRESSION: No acute abnormality of the cervical spine. Multilevel degenerative disc disease and facet arthropathy, stable compared to previous CT. D/ / 07/15/2017 11:25:10 Mejia Torres MD / kalli Interpreting Provider: Mejia Torres MD Head CT 07/15/17 10:11 IMPRESSION: No acute intracranial abnormality is seen. Sequela of brain parenchymal atrophy with prominence of the sulci and ventricles is re-demonstrated. D/ / 07/15/2017 11:34:12 Jose Daniel Cantu MD / kalli Interpreting Provider: Jose Daniel Cantu MD Active Medications Amlodipine Besylate (Norvasc) 5 mg PO DAILY [facility] PRN Reason: Protocol Stop: 01/15/18 09:01 Last Admin: 07/16/17 10:27 Dose: 5 mg Aspirin (Aspirin) 81 mg PO DAILY [facility] Stop: 01/15/18 09:01 Last Admin: 07/16/17 10:27 Dose: 81 mg Atorvastatin Calcium (Lipitor) 40 mg PO HS [facility] Stop: 01/14/18 21:01 Last Admin: 07/15/17 22:01 Dose: 40 mg Ciprofloxacin HCl (Cipro) 500 mg PO BID [facility] Stop: 01/14/18 21:01 Last Admin: 07/16/17 10:26 Dose: 500 mg Clopidogrel Bisulfate (Plavix) 75 mg PO DAILY [facility] Stop: 01/15/18 09:01 Last Admin: 07/16/17 10:27 Dose: 75 mg Isosorbide Mononitrate (Imdur) 60 mg PO DAILY [facility] Stop: 01/15/18 09:01 Last Admin: 07/16/17 10:27 Dose: 60 mg Lisinopril (Zestril) 5 mg PO DAILY [facility] PRN Reason: Protocol Stop: 01/15/18 09:01 Last Admin: 07/16/17 10:27 Dose: 5 mg Metoprolol Tartrate (Lopressor) 25 mg PO BID [facility] Stop: 01/14/18 21:01 Last Admin: 07/16/17 10:27 Dose: 25 mg Metronidazole (Flagyl) 500 mg PO TID [facility] PRN Reason: Protocol Stop: 01/14/18 15:01 Last Admin: 07/16/17 10:27 Dose: 500 mg Naloxone HCl (Narcan) 0.4 mg IVP Q2MIN PRN PRN Reason: SEE COMMENTS Stop: 01/14/18 12:33 Nitroglycerin (Nitroglycerin) 0.4 mg SL Q5MIN PRN PRN Reason: Chest Pain Stop: 01/14/18 12:43 Omeprazole (Prilosec) 40 mg PO 0630 [facility] Stop: 01/15/18 06:31 Last Admin: 07/16/17 06:07 Dose: 40 mg Vancomycin HCl (Firvanq) 125 mg PO QID [facility] Stop: 01/14/18 13:01 Last Admin: 07/16/17 10:27 Dose: 125 mg Warfarin Sodium (Coumadin) 5 mg PO 1800 [facility] Stop: 01/14/18 18:01 Last Admin: 07/15/17 16:51 Dose: 5 mg - Imaging and Cardiology Chest Xray: report reviewed Echo: pending, report reviewed (06/2017: Impressions: LVEF 55%. Mild left ventricular diastolic dysfunction. Mildly dilated left ventricle. Normal right ventricular structure and function. Cannot completely rule out LV clot however compared to previous ECHO majority has resolved Left Ventricular Wall Motion: Rest Echo Findings All wall segments showed normal motion.) - EKG Interpretation EKG results cardiology: personally reviewed (comparable to baseline) Consult Discharge Plan - Plan Referrals: Segun Damon MD [Primary Care Provider] - <Lilia Buenrostor - Last Filed: 07/16/17 13:01> Date of Encounter: 07/16/17 - Attending Attestation I examined this patient and my medical decision-making was reviewed with the REJECT OPENER. I agree with the documented findings, disposition and treatment plan as described. Mr. Linares presents with generalized weakness and diarrhea concerning for C.diff colitis. Incidentally discovered to have mildly elevated, flat and adynamic troponins. Suspect demand ischemia in this setting. Patient appears chest pain -free and is hemodynamically stable. Echo is pending. Presently on aspirin, Plavix as well as Coumadin. Recent heart catheterization and PCI in June 2017. Recommend continuing dual antiplatelet therapy. Apparently with history of LV thrombus with equivocal findings on echo from June 2017. Agree with repeat echo to help tailor management with Coumadin. Heparin was started upon presentation but stopped due to profound decrease in platelet count. Agree with stopping heparin at this time. Assessment and Plan Discussion w patient/family: The assessment and plan as outlined above was discussed with the patient and/or family members who expressed understanding and agreement. All questions were answered. Thank you for involving us in the care of your patient. Please call with any questions. History of Present Illness History of present illness: Mr. Linares is a 89 year old male All Systems Review: The remainder of the systems were reviewed and are negative Physical Examination Vital Signs, Last 4 Hours Temp Pulse Resp BP 07/16/17 11:24 97.8 F 54 20 102/62 Results 07/16/17 00:36 07/16/17 00:36 Lab Results 07/15/17 07/15/17 07/15/17 13:15 13:15 18:23 WBC Hgb Hct Plt Count INR APTT Sodium Potassium Chloride Carbon Dioxide BUN Creatinine Glucose Calcium Magnesium 2.0 Troponin I 0.09 H* 0.07 H* 07/15/17 07/16/17 07/16/17 18:23 00:36 00:36 WBC 2.6 L Hgb 10.9 L Hct 33.7 L Plt Count 78 L INR APTT 92.7 H D Sodium Potassium Chloride Carbon Dioxide BUN Creatinine Glucose Calcium Magnesium Troponin I 0.06 H* 07/16/17 07/16/17 07/16/17 00:36 00:36 00:36 WBC Hgb Hct Plt Count INR 1.3 APTT 142.9 H* D Sodium 138 Potassium 3.7 Chloride 107 Carbon Dioxide 25 BUN 19 Creatinine 0.80 Glucose 79 Calcium 8.2 L Magnesium Troponin I 07/16/17 10:32 WBC Hgb Hct Plt Count INR APTT 95.1 H Sodium Potassium Chloride Carbon Dioxide BUN Creatinine Glucose Calcium Magnesium Troponin I
[2017-07-16 12:25] LABS: Mean Platelet Volume 9.8 fL (9.4-12.4)
[2017-07-16 13:35] LABS: Adenovirus F 40/41 PCR Not detected (Not detect); Astrovirus PCR Not detected (Not detect); C.difficile Toxin A/B by PCR See reflex test (Not detect); Campylobacter by PCR Not detected (Not detect); Cryptosporidium by PCR Not detected (Not detect); Cyclospora cayetanensis PCR Not detected (Not detect); E. coli O157 by PCR Not detected (Not detect); Entamoeba histolytica PCR Not detected (Not detect); Enteroaggregative E.coli(EAEC) Not detected (Not detect); Enteropathogenic E.coli(EPEC) Not detected (Not detect); Enterotoxigenic E.coli (ETEC) Not detected (Not detect); Giardia lamblia PCR Not detected (Not detect); Norovirus GI/GII PCR Not detected (Not detect); Plesiomonas shigelloides PCR Not detected (Not detect); Rotavirus A PCR Not detected (Not detect); Salmonella PCR Not detected (Not detect); Sapovirus PCR Not detected (Not detect); Shig/EnteroinvasiveE coli EIEC Not detected (Not detect); Shigalike tox-prod E coli STEC Not detected (Not detect); Vibrio PCR Not detected (Not detect); Vibrio cholerae PCR Not detected (Not detect); Yersinia enterocolitica PCR Not detected (Not detect)
[2017-07-16] MEDS ORDERED: Perflutren Lipid Microsphere 2 ML VIAL ONE (14:41)
[2017-07-16] MEDS: *HR* Warfarin 5 MG TABLET PO SCH (17:45)
[2017-07-17 04:24] LABS: Basophils % 0.2 %
[2017-07-17 04:25] LABS: Hematocrit 31.8 % (37.5-50.1); Hemoglobin 10.7 g/dL (12.9-16.9); Immature Granulocytes % 0.4 % (0-4); Immature Platelets 3.1 % (1.1-6.1); Lymphocytes # 0.6 K/mcL (0.6-4.6); Lymphocytes % 13.8 %; Mean Corpuscular HGB Conc 33.6 g/dL (31.6-35.5); Mean Corpuscular Hemoglobin 29.9 pg (28.0-33.3); Mean Corpuscular Volume 88.8 fL (83.0-100.0); Mean Platelet Volume 10.5 fL (9.4-12.4); Monocytes # 0.7 K/mcL (0.0-1.3); Monocytes % 15.4 %; Neutrophils # 3.2 K/mcL (1.6-8.9); Red Blood Count 3.58 M/mcL (4.19-5.50); Red Cell Distribution Width 14.9 % (11.5-14.5); Segmented Neutrophils % 70.2 %
[2017-07-17 04:40] LABS: Platelet Count 91 K/mcL (140-400)
[2017-07-17 04:42] LABS: Calcium 8.4 mg/dL (8.6-10.3); Potassium 4.1 mEq/L (3.5-5.1)
--- NOTE | 2017-07-17 09:29 | Internal Med Progress Note ---
<Rodolfo García - Last Filed: 07/17/17 16:07> Date of Encounter: 07/17/17 Time of Encounter: 09:28 - Assessment and plan (1) Colitis Current Visit: Yes Status: Acute Assessment and plan: C.diff colitis as noted on pcr and CT abd. Continue with Vancomycin oral, discontinue with Flagyl and ciprofloxacin. Stools appearing more solid. Will advance diet as tolerated. (2) LV (left ventricular) mural thrombus Current Visit: Yes Status: Chronic Assessment and plan: Patient has confirmed LV thrombus again on Echo. 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 HIT 4T score is intermediate at 5 points. Per Cardio recommendations, will continue with warfarin, asa, and plavix. Heparin pF4 antibody ordered. Avoid heparin products at this time. Continue monitoring platelet levels and assess bleeding risk routinely. (3) NSTEMI (non-ST elevated myocardial infarction) Current Visit: Yes Status: Suspected Assessment and plan: Suspected. No chest pain at this time. Likely demand ischemia Cardiology consulted and advise likely demand ischemia. Troponin 0.1, 0.09, 0.07, 0.06 Continue with home medications including DAPT, Imdur, lisinopril, metoprolol. (4) DVT prophylaxis Current Visit: Yes Status: Acute Assessment and plan: Warfarin and DAPT. (5) Thrombocytopenia Current Visit: Yes Status: Acute Assessment and plan: Baseline platelets around 170-190s previously 78, 109, 91 since admission with multiple exposures to heparin due to CAD. Concern for HIT, avoid heparin products. HIT 4T score at 5 points, intermediate risk. Continue to follow platelet counts and assess bleeding risk routinely. - Time Spent With Patient Total time spent is greater than 50% in coordination of care (as documented) at patient's floor/unit and/or counseling patient: - Subjective Interval history: No new complaints. Patient denies loose stools or abdominal pain. Does also report improved energy and decreased weakness. Denies fevers, chills, sweats, weakness, headaches, nausea, vomiting, chest pain, shortness of breath, abdominal pain, changes in urination, or rash. - Constitutional Vitals: Temp Pulse Resp BP Pulse Ox 98.1 F 65 15 131/57 97 07/17/17 07:00 07/17/17 07:00 07/17/17 07:00 07/17/17 07:00 07/17/17 07:00 General appearance: Present: A&O X 3, pleasant, no acute distress, answers questions appropriately - Head Head exam: Present: atraumatic, normal inspection, normocephalic - Eye Eye exam: Present: EOMI, normal appearance - ENT ENT exam: Present: mucous membranes moist - Neck Neck exam general surgery: Present: full ROM, normal inspection - Respiratory Respiratory exam: Present: CTAB. Absent: rales, rhonchi, wheezes - Cardiovascular Cardiovascular exam: Present: RRR - GI/Abdominal GI/Abdominal exam: Present: normal bowel sounds, soft. Absent: tenderness - Extremities Exam Extremities exam: Present: full ROM, normal inspection, warm, radial pulses palpable and symmetrical. Absent: pedal edema Internal Medicine: Result - Labs CBC & Chem 7: 07/17/17 03:45 07/17/17 14:20 Labs: Short CBC 07/17/17 Range/Units 03:45 WBC 4.5 D (4.3-11.1) K/mcL Hgb 10.7 L (12.9-16.9) g/dL Hct 31.8 L (37.5-50.1) % Plt Count 91 L (140-400) K/mcL Neutrophils # 3.2 (1.6-8.9) K/mcL BMP 07/17/17 03:45 Sodium 137 Potassium 4.1 Chloride 106 Carbon Dioxide 21 L BUN 22 Creatinine 1.44 H Glucose 91 Calcium 8.4 L - ABG Interpretation ABG results: PT/INR, D-dimer PT 14.4 Seconds (9.4-12.1) H 07/16/17 00:36 Consult Discharge Plan - Plan Referrals: Segun Damon MD [Primary Care Provider] - <Kwame Sargent - Last Filed: 07/17/17 17:49> Date of Encounter: 07/17/17 - Assessment and plan (1) NSTEMI (non-ST elevated myocardial infarction) Current Visit: Yes Status: Suspected (2) Colitis Current Visit: Yes Status: Acute (3) LV (left ventricular) mural thrombus Current Visit: Yes Status: Chronic (4) DVT prophylaxis Current Visit: Yes Status: Acute (5) Thrombocytopenia Current Visit: Yes Status: Acute - Time Spent With Patient Total time spent is greater than 50% in coordination of care (as documented) at patient's floor/unit and/or counseling patient: - Constitutional Vitals: Temp Pulse Resp BP Pulse Ox 97.7 F 48 17 121/49 95 07/17/17 17:00 07/17/17 17:00 07/17/17 17:00 07/17/17 17:00 07/17/17 17:00 Internal Medicine: Result - Labs CBC & Chem 7: 07/17/17 03:45 07/17/17 14:20 Labs: Short CBC 07/17/17 Range/Units 03:45 WBC 4.5 D (4.3-11.1) K/mcL Hgb 10.7 L (12.9-16.9) g/dL Hct 31.8 L (37.5-50.1) % Plt Count 91 L (140-400) K/mcL Neutrophils # 3.2 (1.6-8.9) K/mcL BMP 07/17/17 07/17/17 03:45 14:20 Sodium 137 137 Potassium 4.1 3.6 Chloride 106 108 H Carbon Dioxide 21 L 23 BUN 22 23 Creatinine 1.44 H 1.30 Glucose 91 94 Calcium 8.4 L 8.3 L - ABG Interpretation ABG results: PT/INR, D-dimer PT 18.3 Seconds (9.4-12.1) H 07/17/17 14:20 - Attending Attestation I examined this patient 07/17, and my medical decision-making was reviewed with the Resident Physician. I agree with the documented findings, disposition and treatment plan as described except to the extent set forth below. 89-year-old male with coronary artery disease, history of stents, history of present ventricular thrombus, admitted and being managed for C. difficile colitis. Uncomplicated. He has no new complaints. Admitting labs revealed pancytopenia, including platelet count of 89,000. heparinwas discontinued due to intermediate suspicion for HiT. His diarrhea has improved, continue vancomycin only. Continue warfarin for anticoagulation. If patient does not improve consider hematology evaluation. Send out HiT antibody. Cardiology eval noted. rest of details as in the resident physician documentation
[2017-07-17] MEDS: Aspirin 81 MG TAB.CHEW PO SCH (09:50)
[2017-07-17] MEDS: amLODIPine 5 MG TABLET PO SCH (09:50)
[2017-07-17] MEDS: Vancomycin Oral Soln 250 MG/5 ML UDC PO SCH ×4 (09:51→21:51)
[2017-07-17] MEDS: metroNIDAZOLE 500 MG TABLET PO SCH (09:51)
--- NOTE | 2017-07-17 10:42 | Cardiology Progress Note ---
Date of Encounter: 07/17/17 Time of Encounter: 10:40 Assessment and Plan (1) Colitis Current Visit: Yes Status: Acute Per Cardiology: Management per primary service. On antibiotics. (2) Elevated troponin I measurement Current Visit: Yes Status: Acute Per Cardiology: Troponins flat, adynamic, peak of 0.10 in the setting of diarrhea and colitis. Suspect demand ischemia. Appears CP free. EF 35% now on echo, was 45-50% 2015 and 55% last month. Euvolemic on exam. Discussed and reviewed with Dr. Pettit and Dr. Bailey (his primary Manager Lean), no further ischemic evaluation warranted at this time. Recommend continued medical management. On aspirin, Plavix, statin, ACEI, beta joel, long-acting nitrate. Euvolemic on exam. Discussed with patient's son whom agrees with plan. Cardiology will sign off, reconsult as needed, follow-up arranged. (3) CAD (coronary artery disease) Current Visit: No Status: Chronic Per Cardiology: Patient with known history of CAD and recent catheterization June 2017 at which point in time patient did receive drug-eluting stent to mid LAD 90% lesion. Has remaining proximal circumflex 50% and OM1 65% lesions. Has mid RCA 100% lesion with right to left collaterals. Qualifiers: Coronary Disease-Associated Artery/Lesion type: [place] artery [place] vs. transplanted heart: [place] heart Associated angina: with other forms of angina Qualified Code(s): I25.118 - Atherosclerotic heart disease of [place] coronary artery with other forms of angina pectoris (4) Thrombocytopenia Current Visit: Yes Status: Acute Per Cardiology: On aspirin and Plavix. Also on Coumadin. Heparin drip now off. Platelets appear slightly improved in the 90s today. Continue to monitor closely. Patient will need to continue with aspirin and Plavix with recent stenting last month and current echo shows still has LV thrombus--continue with Coumadin as well. 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 Most recent echo June 2017 showed EF 55%, mild diastolic dysfunction, mildly dilated left ventricle, normal RV structure and function, "cannot completely rule out LV clot , however compared to previous echo majority has resolved ". Current echo shows LV thrombus. On Coumadin for anticoagulation-- target INR 2.0-3.0. We will need to monitor very closely with aspirin, Plavix, Coumadin and now with thrombocytopenia. H&H currently about baseline. Discussion w patient/family: Thank you for involving us in the care of your patient. Please call with any questions. Subjective Principal diagnosis: Elevated Trop Interval history: Patient seen with son at bedside. He denies any chest pain, shortness of breath , palpitations. Alert to person and was aware he was in the hospital, however unsure as to where. Did not know the year. Objective Vital Signs, Last 4 Hours Temp Pulse Resp BP Pulse Ox 07/17/17 07:00 98.1 F 65 15 131/57 97 General: Conversant, No Apparent Distress Cardiac: Reg Rate and Rhythm, Normal S1 and S2, No Murmur Lungs: Normal Breath Sounds, No Wheeze, Rales, Rhonchi Neuro: Alert and responsive, No focal deficits noted Skin: No rashes noted on visualized skin Extremities: No Edema Results 07/17/17 03:45 07/17/17 03:45 Lab Results Laboratory Tests 07/16/17 07/17/17 07/17/17 00:36 03:45 03:45 Hgb 10.7 L Hct 31.8 L Plt Count 91 L INR 1.3 Creatinine 1.44 H Est GFR (Non-Af Amer) 46 L Impressions Echocardiogram Limited Views 07/16/17 11:32 Impressions: LVEF 35%. Normal LV chamber size and wall thickness. Segmental left ventricular systolic dysfunction. There is an echodensity in the LV apex consistent with thrombus. Findings similar to prior reports. Left Ventricular Wall Motion: Rest Echo Findings The apical inferior, mid inferior, mid inferior septal, apical lateral and mid anterior septal jay were hypokinetic. The apex, apical anterior and apical septal jay were akinetic. All other wall segments showed normal motion. Findings: Study Quality * Technically adequate exam. ECG Findings * Sinus bradycardia. Left Ventricle * LVEF 35%. * Normal LV chamber size and wall thickness. * Segmental left ventricular systolic dysfunction. * There is an echodensity in the LV apex consistent with thrombus. Right Ventricle * Normal right ventricular structure and function. IVC * Normal IVC dimensions and inspiratory collapse. Aorta * Normally sized aortic root. Pericardium * The pericardium appears normal. Active Medications Amlodipine Besylate (Norvasc) 5 mg PO DAILY [facility] PRN Reason: Protocol Stop: 01/15/18 09:01 Last Admin: 07/17/17 09:50 Dose: 5 mg Aspirin (Aspirin) 81 mg PO DAILY [facility] Stop: 01/15/18 09:01 Last Admin: 07/17/17 09:50 Dose: 81 mg Atorvastatin Calcium (Lipitor) 40 mg PO HS [facility] Stop: 01/14/18 21:01 Last Admin: 07/16/17 23:36 Dose: 40 mg Clopidogrel Bisulfate (Plavix) 75 mg PO DAILY [facility] Stop: 01/15/18 09:01 Last Admin: 07/17/17 09:50 Dose: 75 mg Isosorbide Mononitrate (Imdur) 60 mg PO DAILY [facility] Stop: 01/15/18 09:01 Last Admin: 07/16/17 10:27 Dose: 60 mg Lisinopril (Zestril) 5 mg PO DAILY [facility] PRN Reason: Protocol Stop: 01/15/18 09:01 Last Admin: 07/17/17 09:50 Dose: 5 mg Metoprolol Tartrate (Lopressor) 25 mg PO BID [facility] Stop: 01/14/18 21:01 Last Admin: 07/17/17 09:51 Dose: 25 mg Metronidazole (Flagyl) 500 mg PO TID [facility] PRN Reason: Protocol Stop: 01/14/18 15:01 Last Admin: 07/17/17 09:51 Dose: 500 mg Naloxone HCl (Narcan) 0.4 mg IVP Q2MIN PRN PRN Reason: SEE COMMENTS Stop: 01/14/18 12:33 Nitroglycerin (Nitroglycerin) 0.4 mg SL Q5MIN PRN PRN Reason: Chest Pain Stop: 01/14/18 12:43 Omeprazole (Prilosec) 40 mg PO 0630 [facility] Stop: 01/15/18 06:31 Last Admin: 07/17/17 06:43 Dose: 40 mg Vancomycin HCl (Firvanq) 125 mg PO QID [facility] Stop: 01/14/18 13:01 Last Admin: 07/17/17 09:51 Dose: 125 mg Warfarin Sodium (Coumadin) 5 mg PO 1800 [facility] Stop: 01/14/18 18:01 Last Admin: 07/16/17 17:45 Dose: 5 mg - Imaging and Cardiology Echo: report reviewed Consult Discharge Plan - Plan Referrals: Segun Damon MD [Primary Care Provider] -
[2017-07-17 14:42] LABS: INR 1.7; Prothrombin Time 18.3 Seconds (9.4-12.1)
[2017-07-17 15:01] LABS: BUN/Creatinine Ratio 18 (6-26); Blood Urea Nitrogen 23 mg/dL (8-23); Calcium 8.3 mg/dL (8.6-10.3); Carbon Dioxide 23 mEq/L (23-29); Chloride 108 mEq/L (98-107); Glucose 94 mg/dL (70-105); Osmolality,Calculated 287 (280-300); Potassium 3.6 mEq/L (3.5-5.1); Sodium 137 mEq/L (136-145); eGFR For African Americans > 60 (> 60); eGFR For Non-African Americans 52 (> 60)
[2017-07-17] MEDS ORDERED: *HR* Warfarin 5 MG TABLET PO ONE (18:00)
[2017-07-17] MEDS ORDERED: Warfarin perPT PO PRN (18:00)
[2017-07-18 05:18] LABS: Hemoglobin 10.8 g/dL (12.9-16.9)
[2017-07-18 05:19] LABS: Basophils % 0.5 %; Eosinophils # 0.1 K/mcL (0.0-0.6); Eosinophils % 1.6 %; Hematocrit 32.3 % (37.5-50.1); Immature Granulocytes % 0.5 % (0-4); Immature Platelets 3.2 % (1.1-6.1); Lymphocytes # 0.6 K/mcL (0.6-4.6); Lymphocytes % 15.9 %; Mean Corpuscular HGB Conc 33.4 g/dL (31.6-35.5); Mean Corpuscular Hemoglobin 29.8 pg (28.0-33.3); Mean Corpuscular Volume 89.2 fL (83.0-100.0); Mean Platelet Volume 10.4 fL (9.4-12.4); Monocytes # 0.5 K/mcL (0.0-1.3); Monocytes % 14.3 %; Neutrophils # 2.5 K/mcL (1.6-8.9); Red Blood Count 3.62 M/mcL (4.19-5.50); Red Cell Distribution Width 15.5 % (11.5-14.5); Segmented Neutrophils % 67.2 %
[2017-07-18 05:21] LABS: Platelet Count 93 K/mcL (140-400)
[2017-07-18 05:22] LABS: INR 1.9; Prothrombin Time 20.3 Seconds (9.4-12.1)
[2017-07-18 05:36] LABS: BUN/Creatinine Ratio 21 (6-26); Blood Urea Nitrogen 26 mg/dL (8-23); Calcium 8.3 mg/dL (8.6-10.3); Carbon Dioxide 22 mEq/L (23-29); Chloride 109 mEq/L (98-107); Glucose 85 mg/dL (70-105); Osmolality,Calculated 296 (280-300); Potassium 4.3 mEq/L (3.5-5.1); Sodium 141 mEq/L (136-145); eGFR For African Americans > 60 (> 60); eGFR For Non-African Americans 55 (> 60)
[2017-07-18] MEDS: Vancomycin Oral Soln 250 MG/5 ML UDC PO SCH ×4 (08:17→20:17)
[2017-07-18] MEDS: Aspirin 81 MG TAB.CHEW PO SCH (08:17)
[2017-07-18] MEDS: amLODIPine 5 MG TABLET PO SCH (08:17)
--- NOTE | 2017-07-18 12:49 | Internal Med Progress Note ---
<Luis Daniel Avilez - Last Filed: 07/18/17 12:46> Date of Encounter: 07/18/17 Time of Encounter: 12:46 - Assessment and plan (1) Colitis Current Visit: Yes Status: Acute Assessment and plan: has had 2 BMs in last 24 hours cotinue oral vanc for total 10 days (day 3) advance diet to solids. (2) NSTEMI (non-ST elevated myocardial infarction) Current Visit: Yes Status: Ruled-out Assessment and plan: ruled out troponin adynamic denies chest pain continue DAPT, imdur, lisinopril, metoprolol. (3) LV (left ventricular) mural thrombus Current Visit: Yes Status: Chronic Assessment and plan: echo cardiogram shows evidence of thrombus continue coumadin platlet count stable continue to monitor goal of INR 2-3. Currently INR 1.9 awaiting pF4 antibody. 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 (6) Physical deconditioning Current Visit: Yes Status: Acute Assessment and plan: PT/OT consulted recommend SNF. sr. social media & mobile manager consulted. Will need to speak with family concerning discharge but not in room during evaluation. - Time Spent With Patient Total time spent is greater than 50% in coordination of care (as documented) at patient's floor/unit and/or counseling patient: - Subjective Interval history: Patient had no acute events overnight. He was more confused this morning stating he just arrived at the hospital and nothing has been done and not oriented to time. He has had two loose bowel movements in the last 24 hours. - Constitutional Vitals: Temp Pulse Resp BP Pulse Ox 98 F 54 16 116/52 96 07/18/17 10:46 07/18/17 10:46 07/18/17 10:46 07/18/17 10:46 07/18/17 10:46 General appearance: Present: A&O X 2, pleasant, no acute distress, answers questions appropriately - Other Additional findings: General: without distress Heart: Regular rate and rhythm with no murmur Lungs: Clear to auscultation bilaterally Abdomen: Soft nontender, nondistended positive bowel sounds Skin: warm and dry, absent rash Extremities: Absent pedal edema, Neuro: alert to self, place nt time or situation. Vascular: Pedal and radial pulses 2 out of 4 Internal Medicine: Result - Labs CBC & Chem 7: 07/18/17 04:51 07/18/17 04:51 Labs: Short CBC 07/18/17 Range/Units 04:51 WBC 3.7 L (4.3-11.1) K/mcL Hgb 10.8 L (12.9-16.9) g/dL Hct 32.3 L (37.5-50.1) % Plt Count 93 L (140-400) K/mcL Neutrophils # 2.5 (1.6-8.9) K/mcL BMP 07/17/17 07/18/17 14:20 04:51 Sodium 137 141 Potassium 3.6 4.3 Chloride 108 H 109 H Carbon Dioxide 23 22 L BUN 23 26 H Creatinine 1.30 1.23 Glucose 94 85 Calcium 8.3 L 8.3 L - ABG Interpretation ABG results: PT/INR, D-dimer PT 20.3 Seconds (9.4-12.1) H 07/18/17 04:51 Consult Discharge Plan - Plan Referrals: Segun Damon MD [Primary Care Provider] - <Kwame Sargent - Last Filed: 07/18/17 13:44> Date of Encounter: 07/18/17 - Assessment and plan (1) NSTEMI (non-ST elevated myocardial infarction) Current Visit: Yes Status: Ruled-out (2) Colitis Current Visit: Yes Status: Acute (3) LV (left ventricular) mural thrombus Current Visit: Yes Status: Chronic (4) DVT prophylaxis Current Visit: Yes Status: Acute (5) Thrombocytopenia Current Visit: Yes Status: Acute (6) Physical deconditioning Current Visit: Yes Status: Acute - Time Spent With Patient Total time spent is greater than 50% in coordination of care (as documented) at patient's floor/unit and/or counseling patient: - Constitutional Vitals: Temp Pulse Resp BP Pulse Ox 98 F 54 16 116/52 96 07/18/17 10:46 07/18/17 10:46 07/18/17 10:46 07/18/17 10:46 07/18/17 10:46 Internal Medicine: Result - Labs CBC & Chem 7: 07/18/17 04:51 07/18/17 04:51 Labs: Short CBC 07/18/17 Range/Units 04:51 WBC 3.7 L (4.3-11.1) K/mcL Hgb 10.8 L (12.9-16.9) g/dL Hct 32.3 L (37.5-50.1) % Plt Count 93 L (140-400) K/mcL Neutrophils # 2.5 (1.6-8.9) K/mcL BMP 07/17/17 07/18/17 14:20 04:51 Sodium 137 141 Potassium 3.6 4.3 Chloride 108 H 109 H Carbon Dioxide 23 22 L BUN 23 26 H Creatinine 1.30 1.23 Glucose 94 85 Calcium 8.3 L 8.3 L - ABG Interpretation ABG results: PT/INR, D-dimer PT 20.3 Seconds (9.4-12.1) H 07/18/17 04:51 - Attending Attestation I examined this patient 07/18, and my medical decision-making was reviewed with the Resident Physician. I agree with the documented findings, disposition and treatment plan as described except to the extent set forth below. 89-year-old male with coronary artery disease, history of stents, history of present ventricular thrombus, admitted and being managed for C. difficile colitis. Uncomplicated. He has no new complaints. Admitting labs revealed pancytopenia, including platelet count of 89,000. heparin was discontinued due to intermediate suspicion for HiT. He was complaining of feeling hungry and being uncomfortable with his catheter, indication for urinary catheter is unclear His diarrhea has improved, continue vancomycin only. Continue warfarin for anticoagulation. INR is improving Pancytopenia is improving Follow HiT antibody. Change diet to cardiac Cardiology eval noted. Discontinue Rubin and monitor rest of details as in the resident physician documentation
--- NOTE | 2017-07-18 15:56 | Electrocardiograph Report ---
[address] [place] [address] Test Date: 2017-07-15 Pat Name: Giancarlo Linares Department: 104 Room: 2NE32 Gender: M Ultrasonic Tester: KIRBY : 1925 Requested By: Robin Engle Order Number: [id number] Reading MD: Ramón Irizarry Measurements Intervals [place] Rate: 63 P: 68 DE: 207 QRS: 49 QRSD: 79 T: 65 QT: 402 QTc: 409 Interpretive Statements SINUS RHYTHM SEPTAL MYOCARDIAL INFARCTION, OF INDETERMINATE AGE MODERATE T-WAVE ABNORMALITY, CONSIDER ANTERIOR ISCHEMIA Electronically Signed On 07-18-2017 15:54:33 EDT by Ramón Irizarry
[2017-07-18] MEDS ORDERED: *HR* Warfarin 4 MG TABLET PO ONE (18:00)
[2017-07-18] MEDS ORDERED: Acetaminophen 325 MG TABLET PO PRN (20:48)
[2017-07-19 06:17] LABS: INR 2.2; Prothrombin Time 24.2 Seconds (9.4-12.1)
[2017-07-19] MEDS: amLODIPine 5 MG TABLET PO SCH (09:46)
[2017-07-19] MEDS: Vancomycin Oral Soln 250 MG/5 ML UDC PO SCH ×4 (09:46→20:28)
[2017-07-19] MEDS: Aspirin 81 MG TAB.CHEW PO SCH (09:46)
--- NOTE | 2017-07-19 10:06 | Discharge Summary ---
<Luis Daniel Avilez - Last Filed: 07/19/17 10:03> Orders not resulted at time of discharge: Pending orders 07/20/17 04:00 PT/INR [Prothrombin Time INR] [COAG] AM 0400 07/21/17 04:00 PT/INR [Prothrombin Time INR] [COAG] AM 0400 Date of Encounter: 07/19/17 Time of Encounter: 10:03 - Discharge Diagnosis (1) Colitis Priority: Primary Status: Acute Assessment and Plan: Patient will need 6 additional days of oral vancomycin. (2) NSTEMI (non-ST elevated myocardial infarction) Priority: Secondary Status: Ruled-out (3) LV (left ventricular) mural thrombus Priority: Secondary Status: Chronic Assessment and Plan: Patient is now therapeutic on warfarin continue outpatient. 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 Hospital course: Mr. Linares is a 89 year old male who presented from home chief complaint of runny diarrhea with occasional nausea and vomiting. Patient was found to have sepsis secondary to C. difficile colitis and started on oral vancomycin and IV fluids. Patient was put on isolation CT abdomen pelvis showed signs of mucosal thickening long segment of transverse descending colon. Patient also had elevated troponin and cardiology was consulted. The admission patient was found to have NSTEMI and started on heparin gtt. Reported there are adynamic and likely secondary to demand ischemia. Patient also has a history of left ventricular mural thrombus. Repeat echocardiogram showed that the thrombus was still present and patient's Coumadin was continued. He was also noted to have a 50% reduction in his platelets after being started on heparin. 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 A heparin PF 4 antibody was sent and was negative. Likely patient's platelet decreases secondary to sepsis in setting of C. difficile colitis. Patient was also Subtherapeutic on his INR on arrival. Warfarin was continued until patient was therapeutic. INR today is 2.2. Patient had PT OT evaluate him as he has had multiple falls. CT of the head and cervical spine were negative. They recommended short-term rehabilitation and he is awaiting placement. Patient has completed total 4 days of oral vancomycin therapy. His bowel movements are more solid and decreased in frequency. He has only had 2 bowel movements in the last 24 hours. He will complete his oral vancomycin course upon discharge for total 10 days. Patient is able to tolerate his diet. He has difficulty ambulating independently. Discharge discussed with: patient, family - Time Spent with Patient Total time spent providing and/or coordinating discharge services: Greater than 30 minutes - Discharge Medications Prescriptions: Warfarin [Coumadin] 4 mg PO 1800 #30 tablet Home Medications: Clopidogrel [Plavix] 75 mg PO DAILY 06/10/15 [History] Omeprazole [PriLOSEC] 40 mg PO DAILY 10/20/16 [History] amLODIPine [Norvasc] 5 mg PO DAILY #30 tab 10/24/16 [Rx] Aspirin 81 mg PO DAILY tab.chew 06/21/17 [Rx] Isosorbide MONOnitrate (24 HR) [Imdur] 60 mg PO DAILY tab.er.24h 06/21/17 [Rx] Lisinopril [Zestril] 5 mg PO DAILY tablet 06/21/17 [Rx] Metoprolol [Lopressor] 25 mg PO BID tablet 06/21/17 [Rx] Tramadol HCl [Ultram] 50 mg PO BID 2 Days #4 tablet 06/21/17 [Rx] Atorvastatin [Lipitor] 40 mg PO HS 07/15/17 [History] Furosemide [Lasix] 20 mg PO DAILY 07/15/17 [History] Nitroglycerin [Nitrostat] 0.4 mg SL Q5MIN PRN 07/15/17 [History] Vancomycin Oral Soln [Firvanq] 125 mg PO QID 6 Days #24 udc 07/19/17 [Rx] Warfarin [Coumadin] 4 mg PO 1800 #30 tablet 07/19/17 [Rx] Allergies/Adverse Reactions: 3 Allergy/AdvReac Type Severity Reaction Status Date / Time No Known Allergies Allergy Verified 07/15/17 09:27 Date of admission: 07/16/17 12:55 Primary care physician: Segun Damon MD Consults: 07/17/17 10:28 Consult to Physical Therapy [CONS] Routine Comment: Evaluate, develop and implement POC Reason for Consult: Pt is from [facility], discharge planning Does patient have active BEDREST order?: No Is patient medically & hemodynamically stable?: Yes Patient assessed for mobility or mobilized this visit?: Yes 07/17/17 10:30 Consult to Occupational Therapy [CONS] Routine Comment: Evaluate, develop and implement POC Reason for Consult: Pt is from [facility], discharge planning Does patient have active BEDREST order?: No Is patient medically & hemodynamically stable?: Yes Patient assessed for mobility or mobilized this visit?: Yes Discharging clinician: Luis Daniel Avilez - Constitutional Vitals: Temp Pulse Resp BP Pulse Ox 97.7 F 81 16 127/57 94 07/19/17 07:19 07/19/17 07:19 07/19/17 07:19 07/19/17 07:19 07/19/17 07:19 General appearance: Present: A&O X 2, pleasant, no acute distress, answers questions appropriately - Other Additional findings: General: without distress Heart: Regular rate and rhythm with no murmur Lungs: Clear to auscultation bilaterally Abdomen: Soft nontender, nondistended positive bowel sounds Skin: warm and dry, absent rash Extremities: Absent pedal edema, Neuro: alert to self, place, time and situation Vascular: Pedal and radial pulses 2 out of 4 - Patient Status Disposition: Transfer SNF Condition: Fair Functional capacity at discharge: uses cane/walker (will need assistance with ambulation) Overall status at discharge: patient is progressing back to baseline - Discharge Instructions Instructions: Warfarin (By mouth), Myocardial Infarction (DC), Heart Failure ( DC), Urinary Tract Infection in Men (DC), Peripheral Vascular Disorders (DC), Chronic Hypertension (DC), Infectious Colitis (GEN) Follow Up With: Segun Damon MD [Primary Care Provider] - - Diet and Activity Activity: as per physical therapy Diet: advance to your usual diet <Kwame Sargent T - Last Filed: 07/19/17 13:11> Orders not resulted at time of discharge: Pending orders 07/20/17 04:00 PT/INR [Prothrombin Time INR] [COAG] AM 0400 07/21/17 04:00 PT/INR [Prothrombin Time INR] [COAG] AM 0400 Date of Encounter: 07/19/17 - Discharge Diagnosis (1) NSTEMI (non-ST elevated myocardial infarction) Status: Ruled-out (2) Colitis Status: Acute (3) 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 (4) DVT prophylaxis Status: Acute (5) Thrombocytopenia Status: Acute (6) Physical deconditioning Status: Acute Hospital course: Mr. Linares is a 89 year old male Discharge discussed with: case management - Time Spent with Patient Total time spent providing and/or coordinating discharge services: Date of admission: 07/16/17 12:55 Primary care physician: Segun Damon MD Consults: 07/17/17 10:28 Consult to Physical Therapy [CONS] Routine Comment: Evaluate, develop and implement POC Reason for Consult: Pt is from [facility], discharge planning Does patient have active BEDREST order?: No Is patient medically & hemodynamically stable?: Yes Patient assessed for mobility or mobilized this visit?: Yes 07/17/17 10:30 Consult to Occupational Therapy [CONS] Routine Comment: Evaluate, develop and implement POC Reason for Consult: Pt is [facility], discharge planning Does patient have active BEDREST order?: No Is patient medically & hemodynamically stable?: Yes Patient assessed for mobility or mobilized this visit?: Yes - Constitutional Vitals: Temp Pulse Resp BP Pulse Ox 97.9 F 61 16 132/55 93 07/19/17 11:20 07/19/17 11:20 07/19/17 11:20 07/19/17 11:20 07/19/17 11:20 - Attending Attestation I examined this patient 07/19, and my medical decision-making was reviewed with the Resident Physician. I agree with the documented findings, disposition and treatment plan as described except to the extent set forth below. 89-year-old male with coronary artery disease, history of stents, history of left ventricular thrombus, admitted and being managed for uncomplicated C. difficile colitis. He has made significant improvement and may be discharged to SNF Continue warfarin and INR check per protocol of SNF. Complete 10 days of po vanco Rest of details as in the resident physician's documentation
--- NOTE | 2017-07-19 10:17 | Physician Discharge Referral ---
ExtendedCare Referral Info Transfer To: [facility] Provider in Charge: Dr. Sargent Provider in Charge after Transfer: PCP Institutional Level of Care: Skilled - Diagnosis (1) Colitis Priority: Primary Status: Acute (2) NSTEMI (non-ST elevated myocardial infarction) Priority: Secondary Status: Ruled-out (3) LV (left ventricular) mural thrombus Priority: Secondary Status: Chronic (4) DVT prophylaxis Priority: Secondary Status: Acute (5) Thrombocytopenia Priority: Secondary Status: Acute (6) Physical deconditioning Priority: Secondary Status: Acute - Transfer Medications Home Medications: Clopidogrel [Plavix] 75 mg PO DAILY 06/10/15 [History] Omeprazole [PriLOSEC] 40 mg PO DAILY 10/20/16 [History] Warfarin [Coumadin] 5 mg PO DAILY 10/20/16 [History] amLODIPine [Norvasc] 5 mg PO DAILY #30 tab 10/24/16 [Rx] Aspirin 81 mg PO DAILY tab.chew 06/21/17 [Rx] Isosorbide MONOnitrate (24 HR) [Imdur] 60 mg PO DAILY tab.er.24h 06/21/17 [Rx] Lisinopril [Zestril] 5 mg PO DAILY tablet 06/21/17 [Rx] Metoprolol [Lopressor] 25 mg PO BID tablet 06/21/17 [Rx] Tramadol HCl [Ultram] 50 mg PO BID 2 Days #4 tablet 06/21/17 [Rx] Atorvastatin [Lipitor] 40 mg PO HS 07/15/17 [History] Furosemide [Lasix] 20 mg PO DAILY 07/15/17 [History] Nitroglycerin [Nitrostat] 0.4 mg SL Q5MIN PRN 07/15/17 [History] Vancomycin Oral Soln [Firvanq] 125 mg PO QID 6 Days #24 udc 07/19/17 [Rx] Allergies/Adverse Reactions: 3 Allergy/AdvReac Type Severity Reaction Status Date / Time No Known Allergies Allergy Verified 07/15/17 09:27 - Respiratory Orders None Smoking Cessation: Smoking cessation has been advised. For more information, call the [place] Tobacco Quit Line at 3-070-KTJS-NOW. - Advance Directives Code Status: Full Code - Mobility Orders Chair - Rehabiliation Orders Rehab Potential: Good Rehab Orders: Sternal Precautions, ROM Exercises, Evaluation for Physical Therapy, Evaluation for Occupational Therapy - Treatments Skin tear care topically daily PRN per policy - Diet Orders Regular CERTIFICATION: I certify that the transfer of the above named patient to an Extended Care Facility is necessary for the continuing treatment of the diagnosis listed. The above information is true and accurate reflection of patient's current condition. Confidential - Redisclosure prohibited without a patient's written consent.
[2017-07-19] MEDS ORDERED: *HR* Warfarin 5 MG TABLET PO SCH (18:00)
[2017-07-20 04:21] LABS: INR 2.7; Prothrombin Time 29.2 Seconds (9.4-12.1)
[2017-07-20 07:18] VITALS: BP 137/66
--- NOTE | 2017-07-20 08:56 | Internal Med Progress Note ---
<Rodolfo García - Last Filed: 07/20/17 14:12> Date of Encounter: 07/20/17 Time of Encounter: 08:54 - Assessment and plan (1) NSTEMI (non-ST elevated myocardial infarction) Status: Ruled-out Assessment and plan: Ruled out, tropnin adynamic, likely demand ischemia. Continue with DAPT, imdur, lisinopril, and metprolol (2) Colitis Status: Acute Assessment and plan: Patient will need 5 additional days of oral vancomycin C.diff colitis, diarrhea resolved, no abdominal pain. 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 He will be followed by Coumadin clinic and reynae and also by PCP (4) Thrombocytopenia Status: Acute (5) Physical deconditioning Status: Acute Assessment and plan: Okay for discharge to rehab facility, social work confirmed approval. - Time Spent With Patient Total time spent is greater than 50% in coordination of care (as documented) at patient's floor/unit and/or counseling patient: - Subjective Interval history: No new complaints. Patient denies loose stools, abdominal pain, fevers, chills , sweats, nausea, vomiting, chest pain, shortness of rbeath, changes in urination, or weakness. - Constitutional Vitals: Temp Pulse Resp BP Pulse Ox 98.2 F 70 16 137/66 93 07/20/17 07:00 07/20/17 07:00 07/20/17 07:00 07/20/17 07:00 07/20/17 07:00 General appearance: Present: A&O X 2, pleasant, no acute distress, answers questions appropriately - Head Head exam: Present: atraumatic, normal inspection, normocephalic - Eye Eye exam: Present: EOMI, normal appearance - ENT ENT exam: Present: mucous membranes moist, normal exam - Neck Neck exam general surgery: Present: full ROM, normal inspection, supple, trachea midline - Respiratory Respiratory exam: Present: CTAB. Absent: rales, rhonchi, wheezes - Cardiovascular Cardiovascular exam: Present: RRR - GI/Abdominal GI/Abdominal exam: Present: normal bowel sounds, soft. Absent: tenderness - Extremities Exam Extremities exam: Present: full ROM, normal inspection, warm, radial pulses palpable and symmetrical. Absent: pedal edema Internal Medicine: Result - Labs CBC & Chem 7: 07/18/17 04:51 07/18/17 04:51 - ABG Interpretation ABG results: PT/INR, D-dimer PT 29.2 Seconds (9.4-12.1) H 07/20/17 03:49 Consult Discharge Plan - Plan Instructions: Warfarin (By mouth), Myocardial Infarction (DC), Heart Failure ( DC), Urinary Tract Infection in Men (DC), Peripheral Vascular Disorders (DC), Chronic Hypertension (DC), Infectious Colitis (GEN) Referrals: Segun Damon MD [Primary Care Provider] - Prescriptions: Tramadol HCl [Ultram] 50 mg PO BID PRN 5 Days #10 tab PRN Reason: Pain Warfarin [Coumadin] 4 mg PO 1800 #30 tablet <Kwame Sargent - Last Filed: 07/20/17 16:50> Date of Encounter: 07/20/17 - Assessment and plan (1) NSTEMI (non-ST elevated myocardial infarction) Status: Ruled-out (2) Colitis Status: Acute (3) 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 (4) Thrombocytopenia Status: Acute (5) Physical deconditioning Status: Acute - Time Spent With Patient Total time spent is greater than 50% in coordination of care (as documented) at patient's floor/unit and/or counseling patient: - Constitutional Vitals: Temp Pulse Resp BP Pulse Ox 98.2 F 70 16 137/66 93 07/20/17 07:00 07/20/17 07:00 07/20/17 07:00 07/20/17 07:00 07/20/17 07:00 Internal Medicine: Result - Labs CBC & Chem 7: 07/18/17 04:51 07/18/17 04:51 - ABG Interpretation ABG results: PT/INR, D-dimer PT 29.2 Seconds (9.4-12.1) H 07/20/17 03:49 - Attending Attestation I examined this patient and my medical decision-making was reviewed with the Resident Physician on 07/20/17. I agree with the documented findings, disposition and treatment plan as described except to the extent set forth below.
[2017-07-20] MEDS: Aspirin 81 MG TAB.CHEW PO SCH (11:13)
[2017-07-20] MEDS: Vancomycin Oral Soln 250 MG/5 ML UDC PO SCH (11:13)
[2017-07-20] MEDS: amLODIPine 5 MG TABLET PO SCH (11:13)
[2017-07-20] MEDS ORDERED: *HR* Warfarin 2.5 MG TABLET PO ONE (18:00)
== END 2017-07-20 15:15 ==
LOC: 2NENU 09:25 → EMEROO 09:25 → 2NENU 13:32
PROVIDERS: ADMIT Internal Medicine; ATTEND Internal Medicine